=== PATIENT | male | born 1950 | race Hispanic/Latino ===

== ENCOUNTER 2017-08-24 22:52 | Observation (INO) | payer OTHER, MEDICARE ==
[~2017-08-24] VITALS: Ht 175.3 cm; Wt 88.9 kg
[~2017-08-24 22:52] MED LIST: CANA300T PO; CILO50TA PO; CLOP75TA14 PO; GABA-318 PO; INS7030 SQ; LEVO112T4 PO; METO-408 PO; NITR0.4T50 SL; SITA1TAB6 PO; [UNRECOGNIZED DRUG - OTHER] TD
[2017-08-24 23:17] LABS: BASOPHILS % (AUTO) 0.9 % (0.0-5.0); EOSINOPHILS % (AUTO) 1.9 % (0.0-8.0); HEMATOCRIT 42.3 % (42-54); LYMPHOCYTES % (AUTO) 43.8 % (21.0-51.0); MEAN CORPUSCULAR HEMOGLOBIN 32.1 pg (27.0-33.0); MEAN CORPUSCULAR VOLUME 91.9 fL (79-99); MONOCYTES % (AUTO) 6.2 % (3.0-13.0); NEUTROPHILS % (AUTO) 47.2 % (40.0-77.0); PLATELET COUNT (AUTO) 156 K/uL (130-400); RED BLOOD CELL COUNT(AUTO) 4.61 MIL/uL (4.50-6.20); RED CELL DISTRIBUTION WIDTH 12.7 % (11.0-15.5); WHITE BLOOD COUNT (AUTO) 6.3 K/uL (4.8-10.8)
[2017-08-24 23:31] LABS: CREATININE 1.4 mg/dL (0.5-1.5)
[2017-08-25] MEDS ORDERED: INSULIN HUMULIN R 100 UNIT/ML 3ML ONE ×2 (00:44→13:31)
[2017-08-25] MEDS ORDERED: SODIUM CHLORIDE 0.9% 1000ML 1,000 ML IV ONE (00:52)
[2017-08-25] MEDS ORDERED: ASPIRIN 81MG TAB.CHEW ONE (01:33)
[2017-08-25] MEDS ORDERED: INSULIN DETEMIR 10ML 100 UNIT/ML 10ML SQ ONE (08:11)
[2017-08-25 13:51] LABS: BASOPHILS % (AUTO) 0.7 % (0.0-5.0); EOSINOPHILS % (AUTO) 2.4 % (0.0-8.0); HEMATOCRIT 40.7 % (42-54); LYMPHOCYTES % (AUTO) 44.5 % (21.0-51.0); MEAN CORPUSCULAR HEMOGLOBIN 31.7 pg (27.0-33.0); MEAN CORPUSCULAR VOLUME 90.7 fL (79-99); MONOCYTES % (AUTO) 6.1 % (3.0-13.0); NEUTROPHILS % (AUTO) 46.3 % (40.0-77.0); PLATELET COUNT (AUTO) 148 K/uL (130-400); RED BLOOD CELL COUNT(AUTO) 4.48 MIL/uL (4.50-6.20); WHITE BLOOD COUNT (AUTO) 5.6 K/uL (4.8-10.8)
[2017-08-25 13:57] LABS: POTASSIUM 3.8 mmol/L (3.5-5.1)
[2017-08-25 16:25] VITALS: BP 139/71
[2017-08-25] MEDS ORDERED: GLUCAGON 1MG KIT 1 MG ML IM PRN (16:45)
[2017-08-25] MEDS ORDERED: DEXTROSE 50%-WATER 50 ML DISP.SYRIN IV PRN (16:45)
[2017-08-25] MEDS ORDERED: METF10004 PO (18:04)
[2017-08-25] MEDS ORDERED: CLOP75TA14 PO (18:04)
[2017-08-25] MEDS ORDERED: PIOG45TA17 PO (18:04)
[2017-08-25] MEDS ORDERED: AMLO5TAB2 PO (18:04)
[2017-08-25] MEDS ORDERED: LIOT5TAB8 PO (18:04)
[2017-08-25] MEDS ORDERED: METO-391 PO (18:04)
[2017-08-25] MEDS ORDERED: TAMS0.4C32 PO (18:04)
[2017-08-25 20:00] VITALS: BP 130/51
[2017-08-25] MEDS: INSULIN R PO SS1 SQ SCH (21:33)
[2017-08-25 23:41] VITALS: BP 120/67
[2017-08-26 03:55] VITALS: BP 114/65
[2017-08-26 04:47] LABS: CREATININE 1.1 mg/dL (0.5-1.5); HEMATOCRIT 42.5 % (42-54); MEAN CORPUSCULAR HEMOGLOBIN 31.8 pg (27.0-33.0); MEAN CORPUSCULAR HGB CONC 34.3 g/dL (32.0-36.0); MEAN CORPUSCULAR VOLUME 92.8 fL (79-99); NUCLEATED RED BLOOD CELLS 0.1 % (0.0-0.19); PLATELET COUNT (AUTO) 179 K/uL (130-400); POTASSIUM 3.8 mmol/L (3.5-5.1); RED BLOOD CELL COUNT(AUTO) 4.58 MIL/uL (4.50-6.20); RED CELL DISTRIBUTION WIDTH 12.8 % (11.0-15.5); WHITE BLOOD COUNT (AUTO) 6.4 K/uL (4.8-10.8)
[2017-08-26 05:36] LABS: EOSINOPHILS % (MANUAL) 1 % (1-6); LYMPHOCYTES % (MANUAL) 40 % (22-44); MAN.DIFF COMMENT-IMPRESSION MANUAL DIFFERENTIAL; MONOCYTES % (MANUAL) 1 % (2-9); PLATELET MORPHOLOGY COMMENT ADEQUATE; SEGMENTED NEUTROPHILS % 58 % (40-70)
[2017-08-26] MEDS: INSULIN R PO SS1 SQ SCH ×3 (06:31→17:58)
[2017-08-26] MEDS ORDERED: ASPI-555 PO (07:41)
[2017-08-26 08:00] VITALS: BP 104/60
[2017-08-26] MEDS ORDERED: CLOPIDOGREL BISULFATE 75 MG TAB PO SCH (09:00)
[2017-08-26] MEDS ORDERED: AMLODIPINE BESYLATE 5 MG TAB PO SCH (09:00)
[2017-08-26] MEDS ORDERED: TAMSULOSIN HCL 0.4 MG CAP.ER.24H PO SCH (09:00)
[2017-08-26] MEDS ORDERED: PIOGLITAZONE HCL 45 MG TAB PO SCH (09:00)
[2017-08-26] MEDS ORDERED: ASPIRIN 81MG TAB.CHEW PO SCH (09:00)
[2017-08-26] MEDS ORDERED: METOPROLOL TARTRATE 25 MG TAB PO SCH (09:00)
[2017-08-26] MEDS: METFORMIN HCL 500 MG TABLET PO SCH ×2 (09:44→18:00)
[2017-08-26 12:00] VITALS: BP 121/68
[2017-08-26] MEDS ORDERED: PREGABALIN 75 MG CAPSULE PO SCH (14:00)
[2017-08-26 16:00] VITALS: BP 106/61
[2017-08-27] MEDS ORDERED: Liothyronine Sodium 5 MCG PO SCH (09:00)
== END 2017-08-26 18:47 | disposition home or self-care (01) ==
LOC: EDH 22:52 → EDHIP 08-25 12:30 → 3CH 08-25 16:32
PROVIDERS: ADMIT Internal Medicine; ATTEND Internal Medicine
DX: I63.9 Cerebral infarction, unspecified (principal); I25.10 Atherosclerotic heart disease of native coronary artery without angina pectoris; E11.9 Type 2 diabetes mellitus without complications; E78.5 Hyperlipidemia, unspecified; I10 Essential (primary) hypertension; E03.9 Hypothyroidism, unspecified; F03.90 Unspecified dementia, unspecified severity, without behavioral disturbance, psychotic disturbance, mood disturbance, and anxiety; Z86.73 Personal history of transient ischemic attack (TIA), and cerebral infarction without residual deficits; Z88.0 Allergy status to penicillin; Z88.1 Allergy status to other antibiotic agents
CPT/HCPCS: 36415 ×3; 70544; 70551; 80048 ×3; 82948 ×6; 84484; 85025 ×3; 92610; 93005; 93306; 93880; 96372 ×2; 97161; 99291; G0378 ×30; G8978; G8979; G8980; G8981; G8982; G8983; J1815 ×7; J7030

== ENCOUNTER → 2017-11-17 | Outpatient (CLI) | payer OTHER, MEDICARE ==
[~2017-11-17] MED LIST changes: +AMLO5TAB2 PO; +ASPI-555 PO; +LIOT5TAB8 PO; +METF10004 PO; +METO-391 PO; +PIOG45TA64 PO; +TAMS0.4C32 PO
== END | disposition home or self-care (01) ==
LOC: SHCH 13:08
PROVIDERS: ATTEND Internal Medicine Cardiovascular Disease
DX: I34.0 Nonrheumatic mitral (valve) insufficiency (principal)
CPT/HCPCS: 93306

== ENCOUNTER 2018-08-14 18:51 | Emergency (ER) | payer OTHER, MEDICARE ==
[~2018-08-14 18:51] MED LIST changes: -AMLO5TAB2 PO; +AMLO5TAB7 PO; -ASPI-555 PO; +AUD IH; -CILO50TA PO; -CLOP75TA14 PO; +CLOP75TA32 PO; +DAPA10TA PO; +DULA1.5P SQ; +ERGO500014 PO; +ESOM40CA54 PO; +ICOS1CAP PO; -LEVO112T4 PO; +LEVO150T11 PO; +METF-446 PO; -METF10004 PO; -METO-391 PO; -METO-408 PO; +METO25TA6 PO; -NITR0.4T50 SL; +PREG150C PO; +ROSU40TA20 PO; -SITA1TAB6 PO; -[UNRECOGNIZED DRUG - OTHER] TD
[2018-08-14] MEDS ORDERED: HYDROCODONE/ACETAMINOPHEN 5/325 MG TAB ONE (20:50)
== END 2018-08-14 22:29 | disposition home or self-care (01) ==
LOC: EDH 18:51
DX: S00.03XA Contusion of scalp, initial encounter (principal); M54.2 Cervicalgia; M25.512 Pain in left shoulder; R53.1 Weakness; I10 Essential (primary) hypertension; I25.810 Atherosclerosis of coronary artery bypass graft(s) without angina pectoris; E11.9 Type 2 diabetes mellitus without complications; E78.5 Hyperlipidemia, unspecified; E07.9 Disorder of thyroid, unspecified; Z88.0 Allergy status to penicillin; Z88.1 Allergy status to other antibiotic agents; W18.39XA Other fall on same level, initial encounter; Y93.01 Activity, walking, marching and hiking; Y92.89 Other specified places as the place of occurrence of the external cause; Y99.8 Other external cause status
CPT/HCPCS: 70450; 72125; 93005

== ENCOUNTER 2018-11-25 14:36 | Emergency (ER) | payer OTHER, MEDICARE ==
[~2018-11-25 14:36] MED LIST changes: -AMLO5TAB7 PO; +AMLO5TAB9 PO; -GABA-318 PO; +GABA600T10 PO; -LIOT5TAB8 PO; +LIOT5TAB9 PO; -ROSU40TA20 PO; +ROSU40TA21 PO
[2018-11-25 14:54] LABS: APPEARANCE,URINE Clear (CLEAR); BILIRUBIN,URINE Negative (NEGATIVE); COLOR,URINE Yellow (YELLOW); GLUCOSE, URINE (UA) >=1000 mg/dL (NEGATIVE); KETONES,URINE Negative (NEGATIVE); LEUKOCYTE ESTERASE ,URINE Negative (NEGATIVE); NITRATE,URINE Negative (NEGATIVE); OCCULT BLOOD,URINE Negative (NEGATIVE); PH,URINE 6.5 (5.0-8.0); PROTEIN,URINE Negative (NEGATIVE)
[2018-11-25 15:02] LABS: BASOPHILS % (AUTO) 0.9 % (0.0-5.0); EOSINOPHILS % (AUTO) 0.4 % (0.0-8.0); HEMATOCRIT 48.9 % (42-54); LYMPHOCYTES % (AUTO) 12.2 % (21.0-51.0); MEAN CORPUSCULAR HEMOGLOBIN 31.8 pg (27.0-33.0); MEAN CORPUSCULAR HGB CONC 34.6 g/dL (32.0-36.0); NEUTROPHILS % (AUTO) 82.5 % (40.0-77.0); NUCLEATED RED BLOOD CELLS 0.1 % (0.0-0.19); PLATELET COUNT (AUTO) 178 K/uL (130-400); RED BLOOD CELL COUNT(AUTO) 5.31 MIL/uL (4.50-6.20); RED CELL DISTRIBUTION WIDTH 13.2 % (11.0-15.5); WHITE BLOOD COUNT (AUTO) 8.1 K/uL (4.8-10.8)
[2018-11-25 15:18] LABS: CREATININE 1.3 mg/dL (0.5-1.5); POTASSIUM 3.9 mmol/L (3.5-5.1)
[2018-11-25 15:23] LABS: BILIRUBIN,TOTAL 0.5 mg/dL (0.2-1.0); TOTAL PROTEIN, SERUM 8.9 g/dL (6.0-8.3)
== END 2018-11-25 17:25 | disposition home or self-care (01) ==
LOC: EDH 14:36
DX: I95.1 Orthostatic hypotension (principal); R42 Dizziness and giddiness; E11.9 Type 2 diabetes mellitus without complications; E78.5 Hyperlipidemia, unspecified; I10 Essential (primary) hypertension; I25.810 Atherosclerosis of coronary artery bypass graft(s) without angina pectoris; E07.9 Disorder of thyroid, unspecified; Z95.1 Presence of aortocoronary bypass graft; Z88.0 Allergy status to penicillin; Z88.1 Allergy status to other antibiotic agents
CPT/HCPCS: 36415; 80053; 81003; 84484; 85025; 93005; 96360

== ENCOUNTER → 2019-01-14 | Outpatient (CLI) | payer OTHER, MEDICARE ==
[~2019-01-14] MED LIST changes: +LIOT5TAB8 PO; -LIOT5TAB9 PO; +ROSU40TA20 PO; -ROSU40TA21 PO
== END | disposition home or self-care (01) ==
LOC: SHCH 11:04
PROVIDERS: ATTEND Internal Medicine Cardiovascular Disease
DX: I65.23 Occlusion and stenosis of bilateral carotid arteries (principal)
CPT/HCPCS: 93880

== ENCOUNTER 2019-01-20 12:51 | Emergency (ER) | payer OTHER, MEDICARE ==
[2019-01-20] MEDS ORDERED: ONDANSETRON HCL 4 MG/2 ML VIAL ONE (13:31)
[2019-01-20 13:32] LABS: BASOPHILS % (AUTO) 0.4 % (0.0-5.0); EOSINOPHILS % (AUTO) 0.8 % (0.0-8.0); HEMATOCRIT 44.3 % (42-54); LYMPHOCYTES % (AUTO) 19.3 % (21.0-51.0); MEAN CORPUSCULAR HEMOGLOBIN 32.4 pg (27.0-33.0); MEAN CORPUSCULAR HGB CONC 35.1 g/dL (32.0-36.0); MEAN CORPUSCULAR VOLUME 92.4 fL (79-99); MONOCYTES % (AUTO) 4.2 % (3.0-13.0); NEUTROPHILS % (AUTO) 75.3 % (40.0-77.0); NUCLEATED RED BLOOD CELLS 0.1 % (0.0-0.19); PLATELET COUNT (AUTO) 141 K/uL (130-400); RED BLOOD CELL COUNT(AUTO) 4.79 MIL/uL (4.50-6.20); RED CELL DISTRIBUTION WIDTH 12.8 % (11.0-15.5); WHITE BLOOD COUNT (AUTO) 6.7 K/uL (4.8-10.8)
[2019-01-20] MEDS ORDERED: SODIUM CHLORIDE 0.9% 1000ML 1,000 ML IV ONE (13:32)
[2019-01-20] MEDS ORDERED: KETOROLAC TROMETHAMINE 15MG/ML ONE (13:32)
[2019-01-20 13:44] LABS: CREATININE 1.3 mg/dL (0.5-1.5); POTASSIUM 4.1 mmol/L (3.5-5.1)
[2019-01-20 13:45] LABS: INR 1.02 (0.85-1.15); PARTIAL THROMBOPLASTIN TIME 27.7 SEC (26.3-35.5); PROTHROMBIN TIME 10.7 SEC (9.6-11.6)
[2019-01-20 13:48] LABS: ALBUMIN 3.4 g/dL (3.5-5.0); BILIRUBIN,TOTAL 0.8 mg/dL (0.2-1.0); TOTAL PROTEIN, SERUM 8.4 g/dL (6.0-8.3)
[2019-01-20 14:29] LABS: APPEARANCE,URINE CLEAR (CLEAR); BILIRUBIN,URINE NEGATIVE (NEGATIVE); COLOR,URINE YELLOW (YELLOW); GLUCOSE, URINE (UA) >=1000 mg/dL (NEGATIVE); KETONES,URINE 5 mg/dL (NEGATIVE); LEUKOCYTE ESTERASE ,URINE NEGATIVE (NEGATIVE); NITRATE,URINE NEGATIVE (NEGATIVE); OCCULT BLOOD,URINE NEGATIVE (NEGATIVE); PROTEIN,URINE NEGATIVE (NEGATIVE)
[2019-01-20 15:01] LABS: BACTERIA,URINE Rare /HPF (None Seen); RBC,URINE None Seen /HPF (0-1); SQUAMOUS EPITHELIAL CELL,UR None Seen /HPF (0-2); WBC,URINE 0-1 /HPF (0-1)
[2019-01-20] MEDS ORDERED: OSELTAMIVIR PHOSPHATE 75 MG CAP ONE (15:22)
== END 2019-01-20 15:46 | disposition home or self-care (01) ==
LOC: EDH 12:51
DX: J10.1 Influenza due to other identified influenza virus with other respiratory manifestations (principal); E11.9 Type 2 diabetes mellitus without complications; I10 Essential (primary) hypertension; E07.9 Disorder of thyroid, unspecified; I25.10 Atherosclerotic heart disease of native coronary artery without angina pectoris; Z88.0 Allergy status to penicillin; Z88.1 Allergy status to other antibiotic agents; Z95.818 Presence of other cardiac implants and grafts
CPT/HCPCS: 36415; 71045; 80053; 81001; 83605; 85025; 85610; 85730; 87040 ×2; 87088; 87804 ×2; 93005; 96374; 96375; 99285; J1885; J2405; J7030

== ENCOUNTER 2019-08-24 17:49 | Observation (INO) | payer OTHER, MEDICARE ==
[~2019-08-24] VITALS: Ht 175.3 cm; Wt 88.9 kg
[~2019-08-24 17:49] MED LIST changes: +LIOT5TAB11 PO; -LIOT5TAB8 PO; -ROSU40TA20 PO; +ROSU40TA21 PO
[2019-08-24 19:53] LABS: BASOPHILS % (AUTO) 0.4 % (0.0-5.0); EOSINOPHILS % (AUTO) 0.9 % (0.0-8.0); HEMATOCRIT 42.5 % (42-54); LYMPHOCYTES % (AUTO) 23.7 % (21.0-51.0); MEAN CORPUSCULAR HEMOGLOBIN 30.6 pg (27.0-33.0); MEAN CORPUSCULAR HGB CONC 34.1 g/dL (32.0-36.0); MEAN CORPUSCULAR VOLUME 89.7 fL (79-99); MONOCYTES % (AUTO) 7.7 % (3.0-13.0); PLATELET COUNT (AUTO) 154 K/uL (130-400); RED BLOOD CELL COUNT(AUTO) 4.74 MIL/uL (4.50-6.20); RED CELL DISTRIBUTION WIDTH 12.7 % (11.0-15.5); WHITE BLOOD COUNT (AUTO) 7.5 K/uL (4.8-10.8)
[2019-08-24 20:05] LABS: CREATININE 1.1 mg/dL (0.5-1.5); POTASSIUM 3.7 mmol/L (3.5-5.1)
[2019-08-24] MEDS ORDERED: IOHEXOL-350 75 ML VIAL IV ONE (20:08)
[2019-08-24 20:10] LABS: ALBUMIN 3.1 g/dL (3.5-5.0); BILIRUBIN,TOTAL 0.5 mg/dL (0.2-1.0); TOTAL PROTEIN, SERUM 8.1 g/dL (6.0-8.3)
[2019-08-24] MEDS ORDERED: DiphenhydrAMINE HCL 50 MG/ML VIAL ONE (20:14)
[2019-08-24] MEDS ORDERED: METHYLPREDNISOLONE SOD SUCC 125MG/2ML VIAL ONE (20:15)
[2019-08-24] MEDS ORDERED: VANCOMYCIN 1GM+NS 250ML 250 ML IV ONE (21:52)
[2019-08-24] MEDS ORDERED: SODIUM CHLORIDE 0.9% 1000ML 1,000 ML IV ONE (23:18)
[2019-08-25] VITALS (7 sets, daily range): BP systolic 97–136; BP diastolic 53–73
[2019-08-25] MEDS: SODIUM CHLORIDE 0.9% 1000ML 1,000 ML IV SCH ×2 (03:45→17:15)
[2019-08-25] MEDS ORDERED: ONDANSETRON HCL 4 MG/2 ML VIAL IVP PRN (03:45)
[2019-08-25] MEDS ORDERED: MORPHINE SULFATE 2 MG/ML 1ML SYG IVP PRN (03:45)
[2019-08-25] MEDS ORDERED: ZOSYN 3.375GM+NS 50ML 50 ML IV SCH (05:00)
[2019-08-25] MEDS ORDERED: COMPOUND IV REFRIGERATED 1 EACH IVSOLN MISC PRN (06:45)
[2019-08-25] MEDS ORDERED: VANCOMYCIN PROTOCOL PER PHARMACY IV SCH (09:00)
[2019-08-25] MEDS ORDERED: BENZ-51 PO (10:08)
[2019-08-25] MEDS ORDERED: SITA100T12 PO (10:08)
[2019-08-25] MEDS ORDERED: INSU100V37 SQ (10:08)
[2019-08-25] MEDS ORDERED: HYDR-4068 PO (10:08)
[2019-08-25] MEDS ORDERED: LOSA100T58 PO (10:08)
[2019-08-25] MEDS ORDERED: APIX5TAB PO (10:08)
[2019-08-25] MEDS ORDERED: FENO160T16 PO (10:08)
[2019-08-25] MEDS ORDERED: HYDROCODONE/ACETAMINOPHEN 10/325 MG TAB ONE (10:46)
[2019-08-25] MEDS: VANCOMYCIN 1.25 GM in SODIUM CHLORIDE 0.9% 250 ML IV SCH ×2 (10:49→20:18)
[2019-08-25] MEDS ORDERED: BENZONATATE 100 MG CAPSULE PO PRN (12:30)
[2019-08-25] MEDS: PREGABALIN 75 MG CAPSULE PO SCH ×2 (15:10→20:21)
--- NOTE | 2019-08-25 16:51 | NUR ---
DC PLAN PATIENT REFUSED INITIAL ASSESSMENT. Addendum: 08/25/19 at 1652 by CLARK GREENFIELD RN CM Amended: Links added.
[2019-08-25] MEDS: HYDROCODONE/ACETAMINOPHEN 10/325 MG TAB PO PRN (18:30)
[2019-08-25] MEDS: APIXABAN 5 MG TABLET PO SCH (20:20)
[2019-08-25] MEDS: METOPROLOL TARTRATE 25 MG TAB PO SCH (20:21)
[2019-08-25] MEDS ORDERED: ATORVASTATIN CALCIUM 40 MG TABLET PO SCH (21:00)
[2019-08-26 03:10] VITALS: BP 95/55
[2019-08-26 04:43] LABS: BASOPHILS % (AUTO) 0.2 % (0.0-5.0); EOSINOPHILS % (AUTO) 1.1 % (0.0-8.0); HEMATOCRIT 40.7 % (42-54); MEAN CORPUSCULAR HGB CONC 33.2 g/dL (32.0-36.0); MEAN CORPUSCULAR VOLUME 90.4 fL (79-99); MONOCYTES % (AUTO) 7.6 % (3.0-13.0); NEUTROPHILS % (AUTO) 69.6 % (40.0-77.0); PLATELET COUNT (AUTO) 162 K/uL (130-400); RED CELL DISTRIBUTION WIDTH 12.8 % (11.0-15.5); WHITE BLOOD COUNT (AUTO) 8.8 K/uL (4.8-10.8)
[2019-08-26 04:53] LABS: POTASSIUM 3.6 mmol/L (3.5-5.1)
[2019-08-26] MEDS: SODIUM CHLORIDE 0.9% 1000ML 1,000 ML IV SCH (05:15)
[2019-08-26] MEDS: HYDROCODONE/ACETAMINOPHEN 10/325 MG TAB PO PRN ×2 (05:15→12:19)
[2019-08-26 07:21] VITALS: BP 121/50
[2019-08-26] MEDS ORDERED: LEVOTHYROXINE 100 MCG TABLET PO SCH (08:00)
[2019-08-26] MEDS ORDERED: LOSARTAN 100 MG TABLET PO SCH (09:00)
[2019-08-26] MEDS ORDERED: PANTOPRAZOLE SODIUM 40 MG TABLET.DR PO SCH (09:00)
[2019-08-26] MEDS ORDERED: TAMSULOSIN HCL 0.4 MG CAP.ER.24H PO SCH (09:00)
[2019-08-26] MEDS: PREGABALIN 75 MG CAPSULE PO SCH ×2 (09:47→14:53)
[2019-08-26] MEDS: VANCOMYCIN 1.25 GM in SODIUM CHLORIDE 0.9% 250 ML IV SCH (09:49)
[2019-08-26] MEDS: METOPROLOL TARTRATE 25 MG TAB PO SCH (09:49)
[2019-08-26] MEDS: APIXABAN 5 MG TABLET PO SCH (10:49)
[2019-08-26 11:00] VITALS: BP 125/68
[2019-08-26 16:00] VITALS: BP 100/50
--- NOTE | 2019-08-26 18:00 | NUR ---
DISCHARGE INSTRUCTION PROVIDED TO PATIENT ,INSTRUCTED PATIEN TO FOLLOW UP WITH DOCTOR AND A COLORECTAL SURGEON RECOOMENDED BY DR BRISCOE . PER PATIENT VERBILIZED UNDERSTADING. ABSCESS AREA CHECKED NO SIGNS OF BLEED OR DRAINAGE
== END 2019-08-26 19:00 | disposition home or self-care (01) ==
LOC: EDH 17:49 → EDHIP 21:56 → INTOOBSV 21:56 → OBSVTOIN 21:56 → 4DH 23:27
PROVIDERS: ADMIT Internal Medicine Critical Care Medicine; ATTEND Internal Medicine Critical Care Medicine
DX: L02.31 Cutaneous abscess of buttock (principal); E11.65 Type 2 diabetes mellitus with hyperglycemia; E78.5 Hyperlipidemia, unspecified; E03.9 Hypothyroidism, unspecified; I10 Essential (primary) hypertension; I25.10 Atherosclerotic heart disease of native coronary artery without angina pectoris; F03.90 Unspecified dementia, unspecified severity, without behavioral disturbance, psychotic disturbance, mood disturbance, and anxiety; Z86.73 Personal history of transient ischemic attack (TIA), and cerebral infarction without residual deficits; Z79.01 Long term (current) use of anticoagulants; Z79.02 Long term (current) use of antithrombotics/antiplatelets; Z79.4 Long term (current) use of insulin; Z79.899 Other long term (current) drug therapy
CPT/HCPCS: 36415 ×2; 71045; 72193; 80048; 80053; 80202; 82948 ×2; 83605; 84484; 85025 ×2; 87040 ×2; 93005; 96361 ×2; 96365; 96366 ×2; 99284; G0378 ×45; J1200; J2930; J3370 ×3; J7030 ×3; Q9967

== ENCOUNTER 2020-11-15 19:36 | Emergency (ER) | payer OTHER, MEDICARE ==
[~2020-11-15 19:36] MED LIST changes: -AMLO5TAB9 PO; +APIX5TAB PO; -AUD IH; +BENZ-51 PO; -CANA300T PO; -CLOP75TA32 PO; -ERGO500014 PO; +FENO160T16 PO; -GABA600T10 PO; +HYDR-4068 PO; -INS7030 SQ; +INSU100V37 SQ; -LIOT5TAB11 PO; +LOSA100T58 PO; +SITA100T12 PO
[2020-11-15] MEDS ORDERED: CLINDAMYCIN 600 MG/D5% WATER 50 ML IV ONE (20:07)
[2020-11-15] MEDS ORDERED: HYDROCODONE/ACETAMINOPHEN 10/325 MG TAB ONE (20:08)
[2020-11-15 20:51] LABS: BASOPHILS % (AUTO) 0.9 % (0.0-5.0); EOSINOPHILS % (AUTO) 1.7 % (0.0-8.0); HEMATOCRIT 41.6 % (42-54); LYMPHOCYTES % (AUTO) 37.2 % (21.0-51.0); MEAN CORPUSCULAR HEMOGLOBIN 31.3 pg (27.0-33.0); MEAN CORPUSCULAR HGB CONC 34.6 g/dL (32.0-36.0); MEAN CORPUSCULAR VOLUME 90.4 fL (79-99); MONOCYTES % (AUTO) 7.6 % (3.0-13.0); NEUTROPHILS % (AUTO) 52.3 % (40.0-77.0); PLATELET COUNT (AUTO) 175 K/uL (130-400); RED CELL DISTRIBUTION WIDTH 13.8 % (11.0-15.5); WHITE BLOOD COUNT (AUTO) 8.7 K/uL (4.8-10.8)
[2020-11-15 21:00] LABS: APPEARANCE,URINE Clear (CLEAR); BILIRUBIN,URINE Negative (NEGATIVE); COLOR,URINE Yellow (YELLOW); GLUCOSE, URINE (UA) >=1000 mg/dL (NEGATIVE); KETONES,URINE Negative (NEGATIVE); LEUKOCYTE ESTERASE ,URINE Negative (NEGATIVE); NITRATE,URINE Negative (NEGATIVE); OCCULT BLOOD,URINE Negative (NEGATIVE); PROTEIN,URINE Negative (NEGATIVE); UROBILINOGEN,URINE 0.2 mg/dL (0.2-1.0)
[2020-11-15 21:03] LABS: INR 0.98 (0.85-1.15); PROTHROMBIN TIME 10.7 SEC (9.6-11.6)
[2020-11-15 21:04] LABS: CREATININE 1.3 mg/dL (0.5-1.5); POTASSIUM 4.1 mmol/L (3.5-5.1)
[2020-11-15 21:05] LABS: PARTIAL THROMBOPLASTIN TIME 24.9 SEC (26.3-35.5)
[2020-11-15 21:08] LABS: ALBUMIN 3.6 g/dL (3.5-5.0); BILIRUBIN,TOTAL 0.4 mg/dL (0.2-1.0); TOTAL PROTEIN, SERUM 9.1 g/dL (6.0-8.3)
[2020-11-15 21:10] LABS: B-TYPE NATRIURETIC PEPTIDE 22 pg/mL (0-100)
[2020-11-15 21:23] LABS: BACTERIA,URINE None Seen /HPF (None Seen); RBC,URINE 0-1 /HPF (0-1); SQUAMOUS EPITHELIAL CELL,UR 0-2 /HPF (0-2); WBC,URINE 0-1 /HPF (0-1); YEAST,URINE BUDDING Rare /HPF (None Seen)
== END 2020-11-15 21:41 | disposition home or self-care (01) ==
LOC: EDH 19:36
DX: L03.115 Cellulitis of right lower limb (principal); M79.2 Neuralgia and neuritis, unspecified; Z20.822 Contact with and (suspected) exposure to COVID-19; I10 Essential (primary) hypertension; E11.9 Type 2 diabetes mellitus without complications; E78.5 Hyperlipidemia, unspecified; I25.10 Atherosclerotic heart disease of native coronary artery without angina pectoris; F03.90 Unspecified dementia, unspecified severity, without behavioral disturbance, psychotic disturbance, mood disturbance, and anxiety; Z88.0 Allergy status to penicillin; Z88.1 Allergy status to other antibiotic agents; Z95.1 Presence of aortocoronary bypass graft
CPT/HCPCS: 36415; 71045; 73630; 80053; 81001; 83605; 83880; 84484; 85025; 85610; 85730; 87040 ×2; 87426; 93005; 93971; 96365; 99285; J3490; U0003

== ENCOUNTER → 2021-02-13 | Outpatient (CLI) | payer OTHER, MEDICARE ==
[~2021-02-13] MED LIST changes: -BENZ-51 PO; +BENZ-70 PO; +IOHEXOL 350 MG/ML 100ML INFUS..BTL IV ONE; +IOHEXOL-350 50ML VIAL IV ONE
== END | disposition home or self-care (01) ==
LOC: RAH 07:25
PROVIDERS: ATTEND Internal Medicine Cardiovascular Disease
DX: K57.30 Diverticulosis of large intestine without perforation or abscess without bleeding (principal); I70.293 Other atherosclerosis of native arteries of extremities, bilateral legs; I70.0 Atherosclerosis of aorta
CPT/HCPCS: 75635; Q9967 ×2

== ENCOUNTER → 2021-04-12 | Outpatient (CLI) | payer OTHER, MEDICARE ==
[~2021-04-12] MED LIST changes: -IOHEXOL 350 MG/ML 100ML INFUS..BTL IV ONE; -IOHEXOL-350 50ML VIAL IV ONE
== END | disposition home or self-care (01) ==
LOC: RAH 12:28
PROVIDERS: ATTEND Internal Medicine Cardiovascular Disease
DX: I74.3 Embolism and thrombosis of arteries of the lower extremities (principal); M79.604 Pain in right leg
CPT/HCPCS: 93925; 93970

== ENCOUNTER 2021-10-01 09:23 | Emergency (ER) | payer OTHER, MEDICARE ==
[~2021-10-01] VITALS: Ht 175.3 cm; Wt 83.9 kg
[2021-10-01] MEDS ORDERED: ACETAMINOPHEN 500 MG TABLET PO SCH (10:00)
[2021-10-01 11:06] LABS: BASOPHILS % (AUTO) 0.7 % (0.0-5.0); EOSINOPHILS % (AUTO) 2.1 % (0.0-8.0); HEMATOCRIT 42.1 % (42-54); LYMPHOCYTES % (AUTO) 26.8 % (21.0-51.0); MEAN CORPUSCULAR HEMOGLOBIN 30.3 pg (27.0-33.0); MEAN CORPUSCULAR HGB CONC 33.5 g/dL (32.0-36.0); MEAN CORPUSCULAR VOLUME 90.5 fL (79-99); MONOCYTES % (AUTO) 8.4 % (3.0-13.0); NEUTROPHILS % (AUTO) 61.6 % (40.0-77.0); PLATELET COUNT (AUTO) 168 K/uL (130-400); RED BLOOD CELL COUNT(AUTO) 4.65 MIL/uL (4.50-6.20); RED CELL DISTRIBUTION WIDTH 12.4 % (11.0-15.5); WHITE BLOOD COUNT (AUTO) 8.6 K/uL (4.8-10.8)
[2021-10-01 11:13] LABS: POTASSIUM 4.2 mmol/L (3.5-5.1)
[2021-10-01 11:15] LABS: INR 1.05 (0.85-1.15); PROTHROMBIN TIME 11.4 SEC (9.6-11.6)
[2021-10-01 11:18] LABS: BILIRUBIN,TOTAL 0.6 mg/dL (0.2-1.0); TOTAL PROTEIN, SERUM 8.4 g/dL (6.0-8.3)
[2021-10-01 11:50] VITALS: BP 137/69
[2021-10-01] MEDS ORDERED: ACET1TAB25 PO (12:15)
== END 2021-10-01 12:21 | disposition home or self-care (01) ==
LOC: EDH 09:23
DX: I73.9 Peripheral vascular disease, unspecified (principal); M79.604 Pain in right leg; I11.0 Hypertensive heart disease with heart failure; E11.9 Type 2 diabetes mellitus without complications; I25.10 Atherosclerotic heart disease of native coronary artery without angina pectoris; E78.00 Pure hypercholesterolemia, unspecified; Z95.0 Presence of cardiac pacemaker; Z88.0 Allergy status to penicillin; Z88.1 Allergy status to other antibiotic agents; Z79.4 Long term (current) use of insulin; Z79.899 Other long term (current) drug therapy
CPT/HCPCS: 36415; 80053; 82550; 85025; 85610; 93926

== ENCOUNTER → 2022-05-10 | Outpatient (CLI) | payer OTHER, MEDICARE ==
[~2022-05-10] MED LIST changes: +ACET-2079 PO
== END | disposition home or self-care (01) ==
LOC: OIH 10:34
PROVIDERS: ATTEND Internal Medicine Cardiovascular Disease
DX: I35.8 Other nonrheumatic aortic valve disorders (principal); I10 Essential (primary) hypertension; I25.119 Atherosclerotic heart disease of native coronary artery with unspecified angina pectoris; Z95.5 Presence of coronary angioplasty implant and graft
CPT/HCPCS: 93306

== ENCOUNTER 2022-08-13 16:51 | Emergency (ER) | payer MEDICARE, OTHER ==
[~2022-08-13] VITALS: Ht 175.3 cm; Wt 81.6 kg
[2022-08-13 18:40] LABS: BASOPHILS % (AUTO) 0.6 % (0.0-5.0); EOSINOPHILS % (AUTO) 1.2 % (0.0-8.0); HEMATOCRIT 37.4 % (42-54); LYMPHOCYTES % (AUTO) 30.9 % (21.0-51.0); MEAN CORPUSCULAR HEMOGLOBIN 30.4 pg (27.0-33.0); MEAN CORPUSCULAR HGB CONC 34.5 g/dL (32.0-36.0); MONOCYTES % (AUTO) 6.8 % (3.0-13.0); NEUTROPHILS % (AUTO) 60.1 % (40.0-77.0); PLATELET COUNT (AUTO) 194 K/uL (130-400); RED BLOOD CELL COUNT(AUTO) 4.25 MIL/uL (4.50-6.20); RED CELL DISTRIBUTION WIDTH 12.5 % (11.0-15.5); WHITE BLOOD COUNT (AUTO) 8.1 K/uL (4.8-10.8)
[2022-08-13 18:57] LABS: CREATININE 1.1 mg/dL (0.5-1.5); POTASSIUM 4.5 mmol/L (3.5-5.1)
[2022-08-13 19:01] LABS: TOTAL PROTEIN, SERUM 8.5 g/dL (6.0-8.3)
[2022-08-13] MEDS ORDERED: CLIN-141 PO (19:01)
[2022-08-13 19:25] VITALS: BP 128/53
== END 2022-08-13 19:26 | disposition home or self-care (01) ==
LOC: EDH 16:51
DX: L03.115 Cellulitis of right lower limb (principal); I25.10 Atherosclerotic heart disease of native coronary artery without angina pectoris; E11.9 Type 2 diabetes mellitus without complications; I10 Essential (primary) hypertension; E78.00 Pure hypercholesterolemia, unspecified; Z79.899 Other long term (current) drug therapy; Z98.890 Other specified postprocedural states; Z88.1 Allergy status to other antibiotic agents; Z79.4 Long term (current) use of insulin; Z88.0 Allergy status to penicillin
CPT/HCPCS: 36415; 80053; 85025

== ENCOUNTER → 2022-12-09 | Outpatient (CLI) | payer OTHER ==
[~2022-12-09] MED LIST changes: -ACET-2079 PO; +ALBU90AE2 IH; +ATOR40TA69 PO; -BENZ-70 PO; +BISA-189 PO; -DAPA10TA PO; -ESOM40CA54 PO; -FENO160T16 PO; -HYDR-4068 PO; +NITR0.4T50 SL; +POTA-200 PO; -ROSU40TA21 PO; -SITA100T12 PO; -TAMS0.4C32 PO; +TIOT4MIS5 IH
[2022-12-09 16:22] LABS: BASOPHILS % (AUTO) 0.7 % (0.0-5.0); EOSINOPHILS % (AUTO) 2.4 % (0.0-8.0); HEMATOCRIT 30.1 % (42-54); LYMPHOCYTES % (AUTO) 37.9 % (21.0-51.0); MEAN CORPUSCULAR HEMOGLOBIN 27.5 pg (27.0-33.0); MEAN CORPUSCULAR HGB CONC 30.6 g/dL (32.0-36.0); MEAN CORPUSCULAR VOLUME 90.1 fL (79-99); MONOCYTES % (AUTO) 5.7 % (3.0-13.0); NEUTROPHILS % (AUTO) 52.9 % (40.0-77.0); PLATELET COUNT (AUTO) 248 K/uL (130-400); RED BLOOD CELL COUNT(AUTO) 3.34 MIL/uL (4.50-6.20); RED CELL DISTRIBUTION WIDTH 15.4 % (11.0-15.5); WHITE BLOOD COUNT (AUTO) 7.5 K/uL (4.8-10.8)
[2022-12-09 16:56] LABS: ALBUMIN 2.9 g/dL (3.5-5.0); CREATININE 1.1 mg/dL (0.5-1.5); POTASSIUM 4.2 mmol/L (3.5-5.1); T4 (THYROXINE) 11.4 ug/dL (4.7-13.3); THYROID STIMULATING HORMONE 0.03 uIU/mL (0.36-3.74); TOTAL PROTEIN, SERUM 8.9 g/dL (6.0-8.3)
== END | disposition home or self-care (01) ==
LOC: LAB 13:00
PROVIDERS: ATTEND Physician Assistant
DX: I10 Essential (primary) hypertension (principal); E78.5 Hyperlipidemia, unspecified
CPT/HCPCS: 36415; 80053; 84436; 84443; 84479; 85025

== ENCOUNTER 2023-03-05 17:45 | Inpatient (IN) | payer OTHER ==
[~2023-03-05] VITALS: Ht 175.3 cm; Wt 82.6 kg
[~2023-03-05 17:45] MED LIST changes: -LOSA100T58 PO; +LOSA100T59 PO
[2023-03-05 18:33] LABS: BASOPHILS # (AUTO) 0.06 K/uL (0.00-0.20); BASOPHILS % (AUTO) 0.6 % (0.0-5.0); EOSINOPHILS # (AUTO) 0.26 K/uL (0.00-0.70); EOSINOPHILS % (AUTO) 2.7 % (0.0-8.0); HEMATOCRIT 30.5 % (42-54); IMMATURE GRANULOCYTE ABSOLUTE 0.06 K/uL (0-1); LYMPHOCYTES # (AUTO) 2.3 K/uL (1.0-4.8); MEAN CORPUSCULAR HEMOGLOBIN 26.7 pg (27.0-33.0); MEAN CORPUSCULAR HGB CONC 31.5 g/dL (32.0-36.0); MONOCYTES # (AUTO) 0.8 K/uL (0.1-1.0); MONOCYTES % (AUTO) 8.4 % (3.0-13.0); NEUTROPHILS # (AUTO) 6.2 K/uL (1.8-7.7); NEUTROPHILS % (AUTO) 63.7 % (40.0-77.0); PLATELET COUNT (AUTO) 227 K/uL (130-400); RED BLOOD CELL COUNT(AUTO) 3.59 MIL/uL (4.50-6.20); RED CELL DISTRIBUTION WIDTH 15.7 % (11.0-15.5); WHITE BLOOD COUNT (AUTO) 9.8 K/uL (4.8-10.8)
[2023-03-05 18:43] LABS: CREATININE 1.5 mg/dL (0.5-1.5); POTASSIUM 4.2 mmol/L (3.5-5.1)
[2023-03-05 18:45] LABS: PROTHROMBIN TIME 11.6 SEC (9.6-11.6)
[2023-03-05 18:46] LABS: PARTIAL THROMBOPLASTIN TIME 33.6 SEC (26.3-35.5)
[2023-03-05 18:50] LABS: ALBUMIN 2.6 g/dL (3.5-5.0); BILIRUBIN,TOTAL 0.3 mg/dL (0.2-1.0); TOTAL PROTEIN, SERUM 8.9 g/dL (6.0-8.3)
[2023-03-05] MEDS ORDERED: ONDANSETRON 4MG INJ IVP PRN (19:00)
[2023-03-05] MEDS ORDERED: MORPHINE 2 MG SYG IVP PRN (19:00)
[2023-03-05] MEDS ORDERED: LEVOFLOXACIN 500 MG/D5W 100 ML 100 ML IV SCH ×2 (19:00→20:00)
[2023-03-05] MEDS ORDERED: VANCOMYCIN PROTOCOL PER PHARMACY IV SCH ×2 (19:00→20:00)
[2023-03-05] MEDS ORDERED: VANCOMYCIN KIT 1 GM/250 ML IV.KIT IV ONE (20:00)
[2023-03-05] MEDS ORDERED: LEVOFLOXACIN 500 MG/D5W 100 ML 100 ML IV ONE (21:00)
[2023-03-05] MEDS: VANCOMYCIN KIT 1 GM/250 ML IV.KIT IV SCH (21:17)
[2023-03-05 21:55] VITALS: BP 148/74; PULSE 66; RESP 18
[2023-03-06] VITALS (7 sets, daily range): BP systolic 120–159; BP diastolic 50–73; PULSE 60–68; RESP 16–18
[2023-03-06 05:43] LABS: HEMATOCRIT 29.2 % (42-54); MEAN CORPUSCULAR HEMOGLOBIN 26.9 pg (27.0-33.0); MEAN CORPUSCULAR HGB CONC 31.2 g/dL (32.0-36.0); MEAN CORPUSCULAR VOLUME 86.4 fL (79-99); RED BLOOD CELL COUNT(AUTO) 3.38 MIL/uL (4.50-6.20); RED CELL DISTRIBUTION WIDTH 15.7 % (11.0-15.5); WHITE BLOOD COUNT (AUTO) 7.8 K/uL (4.8-10.8)
[2023-03-06 06:10] LABS: ALBUMIN 2.4 g/dL (3.5-5.0); BILIRUBIN,TOTAL 0.3 mg/dL (0.2-1.0); CREATININE 1.3 mg/dL (0.5-1.5); POTASSIUM 3.6 mmol/L (3.5-5.1); TOTAL PROTEIN, SERUM 8.5 g/dL (6.0-8.3)
[2023-03-06] MEDS: HYDROMORPHONE 0.5 MG SYG (0.5MG/0.5ML) IVP PRN ×2 (08:35→20:06)
[2023-03-06] MEDS ORDERED: DEXTROSE 50%-WATER 50 ML DISP.SYRIN IV PRN (12:00)
[2023-03-06] MEDS ORDERED: MAGNESIUM 2GM PREMIX 50ML 50 ML IV PRN (12:00)
[2023-03-06] MEDS ORDERED: LOSARTAN 100 MG TABLET PO ONE (12:00)
[2023-03-06] MEDS ORDERED: POTASSIUM CHLORIDE 10% ELIXIR 20 MEQ/15 ML UDCUP PO PRN (12:00)
[2023-03-06] MEDS ORDERED: HEPARIN 5,000 UNIT VIAL SQ SCH (12:00)
[2023-03-06] MEDS ORDERED: GLUCAGON 1MG KIT 1 MG ML IM PRN (12:00)
[2023-03-06] MEDS ORDERED: POTASSIUM CHLORIDE 20MEQ/100ML 100 ML IV PRN (12:00)
[2023-03-06 12:12] LABS: CRP QUANTITATIVE 81.5 mg/L (0.00-9.0)
[2023-03-06 12:18] LABS: HEMOGLOBIN A1C 6.7 % (4.0-6.0)
[2023-03-06] MEDS: KETOROLAC 15MG/ML VIAL (15MG/ML) IV PRN (13:24)
[2023-03-06] MEDS ORDERED: IOHEXOL-350 75 ML VIAL IV ONE (14:45)
[2023-03-06] MEDS ORDERED: IOHEXOL-350 50ML VIAL IV ONE (14:45)
[2023-03-06] MEDS: INSULIN HUMULIN R 100 UNIT/ML 3ML SQ SCH ×2 (16:30→20:04)
[2023-03-06] MEDS ORDERED: PREG150C46 PO (18:32)
[2023-03-06] MEDS ORDERED: SEMA0.258 SQ (18:32)
[2023-03-06] MEDS ORDERED: ROSU40TA21 PO (18:32)
[2023-03-06] MEDS ORDERED: CLOP75TA32 PO (18:32)
[2023-03-06] MEDS ORDERED: PIOG45TA64 PO (18:32)
[2023-03-06] MEDS ORDERED: DAPA10TA PO (18:32)
[2023-03-06] MEDS ORDERED: METF-446 PO (18:32)
[2023-03-06] MEDS ORDERED: APIX5TAB PO (18:32)
[2023-03-06] MEDS ORDERED: HYDR-3422 PO (18:32)
[2023-03-06] MEDS ORDERED: DULO60CA64 PO (18:32)
[2023-03-06] MEDS ORDERED: CIPR250S6 PO (18:32)
[2023-03-06] MEDS ORDERED: LEVO150C4 PO (18:32)
[2023-03-06] MEDS ORDERED: LOSA100T59 PO (18:32)
[2023-03-06] MEDS ORDERED: HYDR-4068 PO (18:32)
[2023-03-06] MEDS ORDERED: INSU100I24 SQ (18:32)
[2023-03-06] MEDS: ENOXAPARIN SODIUM 80 MG/0.8 ML SQ SCH (18:54)
[2023-03-06] MEDS: VANCOMYCIN KIT 1 GM/250 ML IV.KIT IV SCH (19:00)
[2023-03-06] MEDS: ATORVASTATIN 40 MG TABLET PO SCH (20:06)
[2023-03-06] MEDS: LEVOFLOXACIN 250 MG/D5W 50ML 50 ML IVPB SCH (20:06)
[2023-03-06] MEDS: METOPROLOL SUCCINATE 50 MG TAB.SR.24H PO SCH (20:06)
[2023-03-06] MEDS ORDERED: VANCOMYCIN 1.25 GM/250 ML BAG 250 ML IV SCH (21:00)
[2023-03-07] VITALS (7 sets, daily range): BP systolic 109–160; BP diastolic 47–68; PULSE 66–72; RESP 16–18; O2SAT 97
[2023-03-07] MEDS: HYDROMORPHONE 0.5 MG SYG (0.5MG/0.5ML) IVP PRN ×2 (02:00→20:48)
[2023-03-07 05:05] LABS: BASOPHILS # (AUTO) 0.06 K/uL (0.00-0.20); BASOPHILS % (AUTO) 0.9 % (0.0-5.0); EOSINOPHILS # (AUTO) 0.26 K/uL (0.00-0.70); EOSINOPHILS % (AUTO) 3.8 % (0.0-8.0); HEMATOCRIT 28.9 % (42-54); IMMATURE GRANULOCYTE ABSOLUTE 0.02 K/uL (0-1); LYMPHOCYTES % (AUTO) 29.3 % (21.0-51.0); MEAN CORPUSCULAR HGB CONC 31.8 g/dL (32.0-36.0); MEAN CORPUSCULAR VOLUME 84.8 fL (79-99); MONOCYTES # (AUTO) 0.7 K/uL (0.1-1.0); MONOCYTES % (AUTO) 9.5 % (3.0-13.0); NEUTROPHILS # (AUTO) 3.9 K/uL (1.8-7.7); NEUTROPHILS % (AUTO) 56.2 % (40.0-77.0); PLATELET COUNT (AUTO) 216 K/uL (130-400); RED BLOOD CELL COUNT(AUTO) 3.41 MIL/uL (4.50-6.20); RED CELL DISTRIBUTION WIDTH 15.2 % (11.0-15.5); WHITE BLOOD COUNT (AUTO) 6.9 K/uL (4.8-10.8)
[2023-03-07 05:19] LABS: % IRON SATURATION 10.5 % (30-44)
[2023-03-07 05:39] LABS: ALBUMIN 2.4 g/dL (3.5-5.0); BILIRUBIN,TOTAL 0.3 mg/dL (0.2-1.0); CREATININE 1.3 mg/dL (0.5-1.5); POTASSIUM 3.7 mmol/L (3.5-5.1); TOTAL PROTEIN, SERUM 8.3 g/dL (6.0-8.3)
[2023-03-07 06:00] LABS: APPEARANCE,URINE CLEAR (CLEAR); BILIRUBIN,URINE NEGATIVE (NEGATIVE); COLOR,URINE LIGHT-YELLOW (YELLOW); GLUCOSE, URINE (UA) NEGATIVE (NEGATIVE); KETONES,URINE NEGATIVE (NEGATIVE); LEUKOCYTE ESTERASE ,URINE NEGATIVE Leu/uL (NEGATIVE); NITRATE,URINE NEGATIVE (NEGATIVE); PROTEIN,URINE 50 mg/dL (NEGATIVE); UROBILINOGEN,URINE 0.2 mg/dL (0.2-1.0)
[2023-03-07 06:02] LABS: ADD UA MICROSCOPIC YES
[2023-03-07 06:04] LABS: MUCUS,URINE RARE LPF (None Seen); SQUAMOUS EPITHELIAL CELL,UR RARE /HPF (0-2); WBC,URINE 0-1 /HPF (0-1)
[2023-03-07] MEDS: INSULIN HUMULIN R 100 UNIT/ML 3ML SQ SCH ×4 (06:15→20:41)
[2023-03-07] MEDS: LEVOTHYROXINE 100 MCG TABLET PO SCH (06:19)
[2023-03-07] MEDS: ENOXAPARIN SODIUM 80 MG/0.8 ML SQ SCH ×2 (06:19→17:13)
[2023-03-07] MEDS: METOPROLOL SUCCINATE 50 MG TAB.SR.24H PO SCH ×2 (09:08→20:40)
[2023-03-07] MEDS: CLOPIDOGREL 75MG TAB PO SCH (09:08)
[2023-03-07] MEDS: PANTOPRAZOLE 40 MG/VIAL IVP SCH (09:14)
[2023-03-07] MEDS: CEFEPIME HCL 1 GM VIAL IVPB SCH ×2 (15:19→20:41)
[2023-03-07] MEDS: VANCOMYCIN 1.25 GM/250 ML BAG 250 ML IV SCH (17:13)
[2023-03-07] MEDS: KETOROLAC 15MG/ML VIAL (15MG/ML) IV PRN (17:15)
[2023-03-07] MEDS: LEVOFLOXACIN 250 MG/D5W 50ML 50 ML IVPB SCH (20:37)
[2023-03-07] MEDS: ATORVASTATIN 40 MG TABLET PO SCH (20:40)
[2023-03-08] VITALS (7 sets, daily range): BP systolic 129–150; BP diastolic 58–69; PULSE 63–71; RESP 18–20; O2SAT 95–98
[2023-03-08] MEDS: ENOXAPARIN SODIUM 80 MG/0.8 ML SQ SCH ×2 (04:58→17:54)
[2023-03-08] MEDS: CEFEPIME HCL 1 GM VIAL IVPB SCH ×2 (04:59→14:22)
[2023-03-08] MEDS: LEVOTHYROXINE 100 MCG TABLET PO SCH (05:00)
[2023-03-08 05:12] LABS: BASOPHILS # (AUTO) 0.05 K/uL (0.00-0.20); BASOPHILS % (AUTO) 0.8 % (0.0-5.0); EOSINOPHILS # (AUTO) 0.16 K/uL (0.00-0.70); EOSINOPHILS % (AUTO) 2.6 % (0.0-8.0); HEMATOCRIT 28.4 % (42-54); IMMATURE GRANULOCYTE ABSOLUTE 0.01 K/uL (0-1); LYMPHOCYTES # (AUTO) 1.8 K/uL (1.0-4.8); LYMPHOCYTES % (AUTO) 29.2 % (21.0-51.0); MEAN CORPUSCULAR HEMOGLOBIN 26.4 pg (27.0-33.0); MEAN CORPUSCULAR HGB CONC 31.7 g/dL (32.0-36.0); MEAN CORPUSCULAR VOLUME 83.3 fL (79-99); MONOCYTES # (AUTO) 0.6 K/uL (0.1-1.0); MONOCYTES % (AUTO) 10.2 % (3.0-13.0); NEUTROPHILS # (AUTO) 3.5 K/uL (1.8-7.7); PLATELET COUNT (AUTO) 225 K/uL (130-400); RED BLOOD CELL COUNT(AUTO) 3.41 MIL/uL (4.50-6.20); RED CELL DISTRIBUTION WIDTH 15.1 % (11.0-15.5); WHITE BLOOD COUNT (AUTO) 6.1 K/uL (4.8-10.8)
[2023-03-08] MEDS: INSULIN HUMULIN R 100 UNIT/ML 3ML SQ SCH ×4 (05:28→20:56)
[2023-03-08 05:32] LABS: ALBUMIN 2.3 g/dL (3.5-5.0); BILIRUBIN,TOTAL 0.3 mg/dL (0.2-1.0); CREATININE 1.3 mg/dL (0.5-1.5); POTASSIUM 3.4 mmol/L (3.5-5.1); TOTAL PROTEIN, SERUM 8.3 g/dL (6.0-8.3)
[2023-03-08] MEDS: KCL 20 MEQ ERTAB PO PRN ×2 (05:56→08:33)
[2023-03-08] MEDS: METOPROLOL SUCCINATE 50 MG TAB.SR.24H PO SCH ×2 (08:33→21:12)
[2023-03-08] MEDS: CLOPIDOGREL 75MG TAB PO SCH (08:33)
[2023-03-08] MEDS: PANTOPRAZOLE 40 MG/VIAL IVP SCH (08:33)
[2023-03-08] MEDS: KETOROLAC 15MG/ML VIAL (15MG/ML) IV PRN (11:22)
[2023-03-08] MEDS: HYDROMORPHONE 0.5 MG SYG (0.5MG/0.5ML) IVP PRN ×2 (12:43→22:18)
[2023-03-08] MEDS: VANCOMYCIN 1.25 GM/250 ML BAG 250 ML IV SCH (17:54)
[2023-03-08] MEDS: HYDROCODONE/ACETAMINOPHEN 5/325 MG TAB PO PRN (19:21)
[2023-03-08] MEDS ORDERED: ACETAMINOPHEN 325 MG TAB PO PRN (20:30)
[2023-03-08] MEDS: ATORVASTATIN 40 MG TABLET PO SCH (21:12)
[2023-03-08] MEDS: LEVOFLOXACIN 250 MG/D5W 50ML 50 ML IVPB SCH (21:45)
[2023-03-09] VITALS (8 sets, daily range): BP systolic 119–144; BP diastolic 55–65; PULSE 59–98; RESP 17–20; O2SAT 98–99
[2023-03-09] MEDS: CEFEPIME HCL 1 GM VIAL IVPB SCH ×4 (00:08→22:28)
[2023-03-09 04:12] LABS: BASOPHILS # (AUTO) 0.04 K/uL (0.00-0.20); BASOPHILS % (AUTO) 0.5 % (0.0-5.0); EOSINOPHILS # (AUTO) 0.19 K/uL (0.00-0.70); EOSINOPHILS % (AUTO) 2.4 % (0.0-8.0); HEMATOCRIT 30.7 % (42-54); IMMATURE GRANULOCYTE ABSOLUTE 0.02 K/uL (0-1); LYMPHOCYTES # (AUTO) 2.1 K/uL (1.0-4.8); LYMPHOCYTES % (AUTO) 26.1 % (21.0-51.0); MEAN CORPUSCULAR HGB CONC 31.9 g/dL (32.0-36.0); MEAN CORPUSCULAR VOLUME 84.6 fL (79-99); MONOCYTES # (AUTO) 0.6 K/uL (0.1-1.0); MONOCYTES % (AUTO) 7.6 % (3.0-13.0); NEUTROPHILS % (AUTO) 63.1 % (40.0-77.0); PLATELET COUNT (AUTO) 247 K/uL (130-400); RED BLOOD CELL COUNT(AUTO) 3.63 MIL/uL (4.50-6.20); RED CELL DISTRIBUTION WIDTH 15.2 % (11.0-15.5); WHITE BLOOD COUNT (AUTO) 7.9 K/uL (4.8-10.8)
[2023-03-09 04:39] LABS: ALBUMIN 2.4 g/dL (3.5-5.0); BILIRUBIN,TOTAL 0.3 mg/dL (0.2-1.0); CREATININE 1.4 mg/dL (0.5-1.5); POTASSIUM 4.6 mmol/L (3.5-5.1); TOTAL PROTEIN, SERUM 8.6 g/dL (6.0-8.3)
[2023-03-09] MEDS: LEVOTHYROXINE 100 MCG TABLET PO SCH (05:20)
[2023-03-09] MEDS: ENOXAPARIN SODIUM 80 MG/0.8 ML SQ SCH ×2 (05:20→17:33)
[2023-03-09] MEDS: HYDROMORPHONE 0.5 MG SYG (0.5MG/0.5ML) IVP PRN ×4 (05:21→22:34)
[2023-03-09] MEDS: INSULIN HUMULIN R 100 UNIT/ML 3ML SQ SCH ×4 (05:31→20:33)
[2023-03-09] MEDS: PANTOPRAZOLE 40 MG/VIAL IVP SCH (08:39)
[2023-03-09] MEDS: CLOPIDOGREL 75MG TAB PO SCH (08:40)
[2023-03-09] MEDS: METOPROLOL SUCCINATE 50 MG TAB.SR.24H PO SCH ×2 (08:40→20:58)
[2023-03-09] MEDS: HYDROCODONE/ACETAMINOPHEN 5/325 MG TAB PO PRN ×2 (13:46→23:45)
[2023-03-09] MEDS: VANCOMYCIN 1.25 GM/250 ML BAG 250 ML IV SCH (17:32)
[2023-03-09] MEDS: ATORVASTATIN 40 MG TABLET PO SCH (20:58)
[2023-03-09] MEDS: LEVOFLOXACIN 250 MG/D5W 50ML 50 ML IVPB SCH (20:58)
[2023-03-10] MEDS: HYDROMORPHONE 0.5 MG SYG (0.5MG/0.5ML) IVP PRN ×3 (02:30→17:09)
[2023-03-10 03:24] VITALS: BP 135/64; PULSE 61; RESP 17
[2023-03-10 05:21] LABS: BASOPHILS # (AUTO) 0.04 K/uL (0.00-0.20); BASOPHILS % (AUTO) 0.6 % (0.0-5.0); EOSINOPHILS % (AUTO) 2.8 % (0.0-8.0); IMMATURE GRANULOCYTE ABSOLUTE 0.02 K/uL (0-1); LYMPHOCYTES % (AUTO) 27.6 % (21.0-51.0); MEAN CORPUSCULAR HEMOGLOBIN 26.2 pg (27.0-33.0); MEAN CORPUSCULAR HGB CONC 31.4 g/dL (32.0-36.0); MEAN CORPUSCULAR VOLUME 83.3 fL (79-99); MONOCYTES # (AUTO) 0.6 K/uL (0.1-1.0); MONOCYTES % (AUTO) 7.8 % (3.0-13.0); NEUTROPHILS # (AUTO) 4.4 K/uL (1.8-7.7); NEUTROPHILS % (AUTO) 60.9 % (40.0-77.0); PLATELET COUNT (AUTO) 235 K/uL (130-400); RED BLOOD CELL COUNT(AUTO) 3.36 MIL/uL (4.50-6.20); RED CELL DISTRIBUTION WIDTH 14.9 % (11.0-15.5); WHITE BLOOD COUNT (AUTO) 7.2 K/uL (4.8-10.8)
[2023-03-10] MEDS: HYDROCODONE/ACETAMINOPHEN 5/325 MG TAB PO PRN ×3 (05:41→22:40)
[2023-03-10 05:42] LABS: ALBUMIN 2.3 g/dL (3.5-5.0); BILIRUBIN,TOTAL 0.3 mg/dL (0.2-1.0); CREATININE 1.2 mg/dL (0.5-1.5); POTASSIUM 3.6 mmol/L (3.5-5.1); TOTAL PROTEIN, SERUM 8.2 g/dL (6.0-8.3)
[2023-03-10] MEDS: ENOXAPARIN SODIUM 80 MG/0.8 ML SQ SCH ×2 (05:43→18:55)
[2023-03-10] MEDS: CEFEPIME HCL 1 GM VIAL IVPB SCH ×3 (05:43→22:34)
[2023-03-10] MEDS: INSULIN HUMULIN R 100 UNIT/ML 3ML SQ SCH ×4 (05:48→20:04)
[2023-03-10] MEDS: LEVOTHYROXINE 100 MCG TABLET PO SCH (05:48)
[2023-03-10 08:00] VITALS: BP 150/66; PULSE 63; RESP 18; O2SAT 98
[2023-03-10] MEDS: METOPROLOL SUCCINATE 50 MG TAB.SR.24H PO SCH ×2 (08:48→20:28)
[2023-03-10] MEDS: PANTOPRAZOLE 40 MG/VIAL IVP SCH (08:48)
[2023-03-10] MEDS: CLOPIDOGREL 75MG TAB PO SCH (08:49)
[2023-03-10 12:00] VITALS: BP 156/61; PULSE 57; RESP 18
[2023-03-10] MEDS: VANCOMYCIN 1.25 GM/250 ML BAG 250 ML IV SCH (17:07)
[2023-03-10] MEDS: KCL 20 MEQ ERTAB PO PRN (18:57)
[2023-03-10 20:00] VITALS: O2SAT 98
[2023-03-10 20:07] VITALS: BP 156/76; PULSE 65; RESP 18
[2023-03-10] MEDS: ATORVASTATIN 40 MG TABLET PO SCH (20:28)
[2023-03-10] MEDS: LEVOFLOXACIN 250 MG/D5W 50ML 50 ML IVPB SCH (20:28)
[2023-03-10 23:49] VITALS: BP 141/58; PULSE 64; RESP 20
[2023-03-11] MEDS ORDERED: HYDROMORPHONE 0.5 MG SYG (0.5MG/0.5ML) ONE (03:17)
[2023-03-11] MEDS: HYDROMORPHONE 0.5 MG SYG (0.5MG/0.5ML) IVP PRN ×4 (03:44→20:09)
[2023-03-11 04:41] VITALS: BP 174/66; PULSE 53; RESP 19
[2023-03-11] MEDS: ENOXAPARIN SODIUM 80 MG/0.8 ML SQ SCH ×2 (05:57→17:25)
[2023-03-11] MEDS: CEFEPIME HCL 1 GM VIAL IVPB SCH ×3 (05:57→23:44)
[2023-03-11] MEDS: INSULIN HUMULIN R 100 UNIT/ML 3ML SQ SCH ×4 (05:58→20:10)
[2023-03-11] MEDS: LEVOTHYROXINE 100 MCG TABLET PO SCH (05:58)
[2023-03-11 08:00] VITALS: BP 126/70; PULSE 65; RESP 18; O2SAT 97
[2023-03-11] MEDS: PANTOPRAZOLE 40 MG/VIAL IVP SCH (08:49)
[2023-03-11] MEDS: METOPROLOL SUCCINATE 50 MG TAB.SR.24H PO SCH ×2 (08:49→20:09)
[2023-03-11] MEDS: CLOPIDOGREL 75MG TAB PO SCH (08:49)
[2023-03-11 10:32] LABS: BASOPHILS # (AUTO) 0.03 K/uL (0.00-0.20); BASOPHILS % (AUTO) 0.4 % (0.0-5.0); EOSINOPHILS # (AUTO) 0.14 K/uL (0.00-0.70); EOSINOPHILS % (AUTO) 1.7 % (0.0-8.0); IMMATURE GRANULOCYTE ABSOLUTE 0.03 K/uL (0-1); LYMPHOCYTES # (AUTO) 1.6 K/uL (1.0-4.8); LYMPHOCYTES % (AUTO) 20.4 % (21.0-51.0); MEAN CORPUSCULAR HEMOGLOBIN 26.5 pg (27.0-33.0); MEAN CORPUSCULAR HGB CONC 31.7 g/dL (32.0-36.0); MEAN CORPUSCULAR VOLUME 83.8 fL (79-99); MONOCYTES # (AUTO) 0.6 K/uL (0.1-1.0); MONOCYTES % (AUTO) 7.1 % (3.0-13.0); NEUTROPHILS # (AUTO) 5.6 K/uL (1.8-7.7); PLATELET COUNT (AUTO) 232 K/uL (130-400); RED BLOOD CELL COUNT(AUTO) 3.58 MIL/uL (4.50-6.20); RED CELL DISTRIBUTION WIDTH 14.9 % (11.0-15.5)
[2023-03-11 10:39] LABS: CREATININE 1.1 mg/dL (0.5-1.5)
[2023-03-11 10:44] LABS: ALBUMIN 2.4 g/dL (3.5-5.0); BILIRUBIN,TOTAL 0.3 mg/dL (0.2-1.0); TOTAL PROTEIN, SERUM 8.7 g/dL (6.0-8.3)
[2023-03-11 11:25] VITALS: BP 125/63; PULSE 65; RESP 20
[2023-03-11 16:00] VITALS: BP 153/64; PULSE 58; RESP 20
[2023-03-11] MEDS: VANCOMYCIN 1.25 GM/250 ML BAG 250 ML IV SCH (17:24)
[2023-03-11 20:00] VITALS: BP 177/78; PULSE 65; RESP 18; O2SAT 97
[2023-03-11] MEDS: LEVOFLOXACIN 250 MG/D5W 50ML 50 ML IVPB SCH (20:08)
[2023-03-11] MEDS: ATORVASTATIN 40 MG TABLET PO SCH (20:09)
[2023-03-12] VITALS (9 sets, daily range): BP systolic 104–154; BP diastolic 55–72; PULSE 54–66; RESP 17–20; O2SAT 97–98
[2023-03-12] MEDS: HYDROMORPHONE 0.5 MG SYG (0.5MG/0.5ML) IVP PRN ×3 (00:12→09:07)
[2023-03-12 05:17] LABS: BASOPHILS # (AUTO) 0.05 K/uL (0.00-0.20); BASOPHILS % (AUTO) 0.6 % (0.0-5.0); EOSINOPHILS % (AUTO) 2.5 % (0.0-8.0); HEMATOCRIT 29.6 % (42-54); IMMATURE GRANULOCYTE ABSOLUTE 0.03 K/uL (0-1); LYMPHOCYTES # (AUTO) 2.5 K/uL (1.0-4.8); LYMPHOCYTES % (AUTO) 30.5 % (21.0-51.0); MEAN CORPUSCULAR HEMOGLOBIN 26.5 pg (27.0-33.0); MEAN CORPUSCULAR HGB CONC 32.1 g/dL (32.0-36.0); MEAN CORPUSCULAR VOLUME 82.7 fL (79-99); MONOCYTES # (AUTO) 0.7 K/uL (0.1-1.0); MONOCYTES % (AUTO) 8.1 % (3.0-13.0); NEUTROPHILS # (AUTO) 4.7 K/uL (1.8-7.7); NEUTROPHILS % (AUTO) 57.9 % (40.0-77.0); PLATELET COUNT (AUTO) 254 K/uL (130-400); RED BLOOD CELL COUNT(AUTO) 3.58 MIL/uL (4.50-6.20); RED CELL DISTRIBUTION WIDTH 14.7 % (11.0-15.5); WHITE BLOOD COUNT (AUTO) 8.1 K/uL (4.8-10.8)
[2023-03-12 05:58] LABS: ALBUMIN 2.4 g/dL (3.5-5.0); BILIRUBIN,TOTAL 0.3 mg/dL (0.2-1.0); POTASSIUM 3.5 mmol/L (3.5-5.1); TOTAL PROTEIN, SERUM 8.7 g/dL (6.0-8.3)
[2023-03-12] MEDS: LEVOTHYROXINE 100 MCG TABLET PO SCH (06:16)
[2023-03-12] MEDS: ENOXAPARIN SODIUM 80 MG/0.8 ML SQ SCH ×2 (06:17→17:13)
[2023-03-12] MEDS: CEFEPIME HCL 1 GM VIAL IVPB SCH ×3 (06:17→23:13)
[2023-03-12] MEDS: INSULIN HUMULIN R 100 UNIT/ML 3ML SQ SCH ×4 (06:18→21:29)
[2023-03-12] MEDS: PANTOPRAZOLE 40 MG/VIAL IVP SCH (09:07)
[2023-03-12] MEDS: CLOPIDOGREL 75MG TAB PO SCH (09:07)
[2023-03-12] MEDS: METOPROLOL SUCCINATE 50 MG TAB.SR.24H PO SCH ×2 (09:07→21:17)
[2023-03-12] MEDS: HYDROMORPHONE 1 MG INJ IVP PRN ×3 (13:30→21:16)
[2023-03-12] MEDS: VANCOMYCIN 1.25 GM/250 ML BAG 250 ML IV SCH (17:13)
[2023-03-12] MEDS: LEVOFLOXACIN 250 MG/D5W 50ML 50 ML IVPB SCH (21:17)
[2023-03-12] MEDS: ATORVASTATIN 40 MG TABLET PO SCH (21:17)
[2023-03-13] VITALS (7 sets, daily range): BP systolic 130–151; BP diastolic 56–74; PULSE 55–74; RESP 18–20; O2SAT 95–96
[2023-03-13] MEDS: HYDROMORPHONE 1 MG INJ IVP PRN ×5 (01:07→23:14)
[2023-03-13 05:56] LABS: BASOPHILS # (AUTO) 0.05 K/uL (0.00-0.20); BASOPHILS % (AUTO) 0.7 % (0.0-5.0); EOSINOPHILS % (AUTO) 2.7 % (0.0-8.0); HEMATOCRIT 29.1 % (42-54); IMMATURE GRANULOCYTE ABSOLUTE 0.04 K/uL (0-1); LYMPHOCYTES # (AUTO) 2.4 K/uL (1.0-4.8); LYMPHOCYTES % (AUTO) 32.4 % (21.0-51.0); MEAN CORPUSCULAR HEMOGLOBIN 26.4 pg (27.0-33.0); MEAN CORPUSCULAR HGB CONC 31.6 g/dL (32.0-36.0); MEAN CORPUSCULAR VOLUME 83.6 fL (79-99); MONOCYTES # (AUTO) 0.7 K/uL (0.1-1.0); MONOCYTES % (AUTO) 9.4 % (3.0-13.0); NEUTROPHILS % (AUTO) 54.3 % (40.0-77.0); PLATELET COUNT (AUTO) 249 K/uL (130-400); RED BLOOD CELL COUNT(AUTO) 3.48 MIL/uL (4.50-6.20); WHITE BLOOD COUNT (AUTO) 7.3 K/uL (4.8-10.8)
[2023-03-13] MEDS: INSULIN HUMULIN R 100 UNIT/ML 3ML SQ SCH ×4 (06:01→21:00)
[2023-03-13] MEDS: CEFEPIME HCL 1 GM VIAL IVPB SCH ×3 (06:03→23:04)
[2023-03-13] MEDS: LEVOTHYROXINE 100 MCG TABLET PO SCH (06:04)
[2023-03-13] MEDS: ENOXAPARIN SODIUM 80 MG/0.8 ML SQ SCH ×2 (06:04→17:48)
[2023-03-13 06:25] LABS: ALBUMIN 2.3 g/dL (3.5-5.0); BILIRUBIN,TOTAL 0.3 mg/dL (0.2-1.0); CREATININE 0.9 mg/dL (0.5-1.5); POTASSIUM 3.8 mmol/L (3.5-5.1); TOTAL PROTEIN, SERUM 8.3 g/dL (6.0-8.3)
[2023-03-13] MEDS: METOPROLOL SUCCINATE 50 MG TAB.SR.24H PO SCH ×2 (09:28→23:04)
[2023-03-13] MEDS: PANTOPRAZOLE 40 MG/VIAL IVP SCH (09:29)
[2023-03-13] MEDS: VANCOMYCIN 1.25 GM/250 ML BAG 250 ML IV SCH (17:48)
[2023-03-13] MEDS: HYDROCODONE/ACETAMINOPHEN 5/325 MG TAB PO PRN (18:58)
[2023-03-13] MEDS: ATORVASTATIN 40 MG TABLET PO SCH (23:03)
[2023-03-13] MEDS: HONEY 1 APPL/ML TUBE TP SCH (23:15)
[2023-03-14] MEDS: LEVOFLOXACIN 250 MG/D5W 50ML 50 ML IVPB SCH ×2 (00:39→20:09)
[2023-03-14 03:20] VITALS: BP 148/59; PULSE 61; RESP 18
[2023-03-14] MEDS: HYDROMORPHONE 1 MG INJ IVP PRN ×5 (04:24→22:02)
[2023-03-14] MEDS: CEFEPIME HCL 1 GM VIAL IVPB SCH ×3 (04:25→21:52)
[2023-03-14] MEDS: ENOXAPARIN SODIUM 80 MG/0.8 ML SQ SCH ×2 (04:25→17:28)
[2023-03-14 06:03] LABS: BASOPHILS # (AUTO) 0.04 K/uL (0.00-0.20); BASOPHILS % (AUTO) 0.6 % (0.0-5.0); EOSINOPHILS # (AUTO) 0.19 K/uL (0.00-0.70); EOSINOPHILS % (AUTO) 2.8 % (0.0-8.0); IMMATURE GRANULOCYTE ABSOLUTE 0.03 K/uL (0-1); LYMPHOCYTES # (AUTO) 2.1 K/uL (1.0-4.8); LYMPHOCYTES % (AUTO) 31.4 % (21.0-51.0); MEAN CORPUSCULAR HEMOGLOBIN 26.5 pg (27.0-33.0); MEAN CORPUSCULAR HGB CONC 31.1 g/dL (32.0-36.0); MEAN CORPUSCULAR VOLUME 85.4 fL (79-99); MONOCYTES # (AUTO) 0.6 K/uL (0.1-1.0); MONOCYTES % (AUTO) 8.7 % (3.0-13.0); NEUTROPHILS # (AUTO) 3.8 K/uL (1.8-7.7); NEUTROPHILS % (AUTO) 56.1 % (40.0-77.0); PLATELET COUNT (AUTO) 254 K/uL (130-400); RED BLOOD CELL COUNT(AUTO) 3.28 MIL/uL (4.50-6.20); RED CELL DISTRIBUTION WIDTH 15.2 % (11.0-15.5); WHITE BLOOD COUNT (AUTO) 6.8 K/uL (4.8-10.8)
[2023-03-14] MEDS: LEVOTHYROXINE 100 MCG TABLET PO SCH (06:30)
[2023-03-14] MEDS: INSULIN HUMULIN R 100 UNIT/ML 3ML SQ SCH ×4 (06:30→20:34)
[2023-03-14 06:37] LABS: ALBUMIN 2.2 g/dL (3.5-5.0); BILIRUBIN,TOTAL 0.3 mg/dL (0.2-1.0); CREATININE 0.9 mg/dL (0.5-1.5); POTASSIUM 3.4 mmol/L (3.5-5.1); TOTAL PROTEIN, SERUM 7.9 g/dL (6.0-8.3)
[2023-03-14 08:00] VITALS: BP 151/68; PULSE 62; RESP 17
[2023-03-14] MEDS: HONEY 1 APPL/ML TUBE TP SCH (09:08)
[2023-03-14] MEDS: PANTOPRAZOLE 40 MG/VIAL IVP SCH (09:10)
[2023-03-14] MEDS: METOPROLOL SUCCINATE 50 MG TAB.SR.24H PO SCH ×2 (09:10→20:10)
[2023-03-14] MEDS: KCL 20 MEQ ERTAB PO PRN ×2 (09:11→12:35)
[2023-03-14 11:53] VITALS: BP 144/60; PULSE 63; RESP 18
[2023-03-14 15:44] VITALS: BP 164/68; PULSE 61; RESP 18
[2023-03-14] MEDS: HYDROCODONE/ACETAMINOPHEN 5/325 MG TAB PO PRN (15:56)
[2023-03-14] MEDS: VANCOMYCIN 1.25 GM/250 ML BAG 250 ML IV SCH (17:27)
[2023-03-14 20:00] VITALS: BP 146/71; PULSE 61; RESP 18
[2023-03-14] MEDS: ATORVASTATIN 40 MG TABLET PO SCH (20:10)
[2023-03-15] VITALS: BP 143/58; PULSE 70; RESP 18
[2023-03-15] MEDS: HYDROMORPHONE 1 MG INJ IVP PRN ×6 (02:03→23:01)
[2023-03-15 04:00] VITALS: BP 142/66; PULSE 58; RESP 18
[2023-03-15 05:15] LABS: BASOPHILS # (AUTO) 0.04 K/uL (0.00-0.20); BASOPHILS % (AUTO) 0.5 % (0.0-5.0); EOSINOPHILS # (AUTO) 0.18 K/uL (0.00-0.70); EOSINOPHILS % (AUTO) 2.4 % (0.0-8.0); HEMATOCRIT 28.5 % (42-54); IMMATURE GRANULOCYTE ABSOLUTE 0.04 K/uL (0-1); LYMPHOCYTES # (AUTO) 2.2 K/uL (1.0-4.8); LYMPHOCYTES % (AUTO) 30.1 % (21.0-51.0); MEAN CORPUSCULAR HEMOGLOBIN 26.5 pg (27.0-33.0); MEAN CORPUSCULAR HGB CONC 31.6 g/dL (32.0-36.0); MEAN CORPUSCULAR VOLUME 83.8 fL (79-99); MONOCYTES # (AUTO) 0.7 K/uL (0.1-1.0); MONOCYTES % (AUTO) 9.1 % (3.0-13.0); NEUTROPHILS # (AUTO) 4.3 K/uL (1.8-7.7); NEUTROPHILS % (AUTO) 57.4 % (40.0-77.0); PLATELET COUNT (AUTO) 265 K/uL (130-400); RED CELL DISTRIBUTION WIDTH 15.2 % (11.0-15.5); WHITE BLOOD COUNT (AUTO) 7.4 K/uL (4.8-10.8)
[2023-03-15 05:43] LABS: ALBUMIN 2.2 g/dL (3.5-5.0); BILIRUBIN,TOTAL 0.3 mg/dL (0.2-1.0); CREATININE 0.9 mg/dL (0.5-1.5); POTASSIUM 3.7 mmol/L (3.5-5.1); TOTAL PROTEIN, SERUM 8.3 g/dL (6.0-8.3)
[2023-03-15] MEDS: CEFEPIME HCL 1 GM VIAL IVPB SCH ×3 (06:09→22:02)
[2023-03-15] MEDS: LEVOTHYROXINE 100 MCG TABLET PO SCH (06:09)
[2023-03-15] MEDS: KCL 20 MEQ ERTAB PO PRN (06:10)
[2023-03-15] MEDS: ENOXAPARIN SODIUM 80 MG/0.8 ML SQ SCH ×2 (06:20→17:41)
[2023-03-15] MEDS: INSULIN HUMULIN R 100 UNIT/ML 3ML SQ SCH ×4 (06:24→20:41)
[2023-03-15 08:00] VITALS: BP 160/81; PULSE 60; RESP 18
[2023-03-15] MEDS: PANTOPRAZOLE 40 MG/VIAL IVP SCH (08:49)
[2023-03-15] MEDS: METOPROLOL SUCCINATE 50 MG TAB.SR.24H PO SCH ×2 (08:49→20:10)
[2023-03-15] MEDS: HYDROCODONE/ACETAMINOPHEN 5/325 MG TAB PO PRN (08:50)
[2023-03-15] MEDS: HONEY 1 APPL/ML TUBE TP SCH (08:51)
[2023-03-15 12:00] VITALS: BP 151/65; PULSE 70; RESP 17
[2023-03-15 16:00] VITALS: BP 153/66; PULSE 61; RESP 16
[2023-03-15] MEDS: HYDROCODONE/ACETAMINOPHEN 10/325 MG TAB PO PRN (17:38)
[2023-03-15] MEDS: VANCOMYCIN 1.25 GM/250 ML BAG 250 ML IV SCH (18:34)
[2023-03-15 20:00] VITALS: BP 170/73; PULSE 71; RESP 20
[2023-03-15] MEDS: ATORVASTATIN 40 MG TABLET PO SCH (20:10)
[2023-03-15] MEDS: LEVOFLOXACIN 250 MG/D5W 50ML 50 ML IVPB SCH (20:10)
[2023-03-16] VITALS: BP 146/71; PULSE 56; RESP 20
[2023-03-16] MEDS: HYDROMORPHONE 1 MG INJ IVP PRN ×6 (02:59→21:18)
[2023-03-16 04:00] VITALS: BP 157/74; PULSE 62; RESP 20
[2023-03-16 05:18] LABS: BASOPHILS # (AUTO) 0.04 K/uL (0.00-0.20); BASOPHILS % (AUTO) 0.6 % (0.0-5.0); EOSINOPHILS # (AUTO) 0.15 K/uL (0.00-0.70); EOSINOPHILS % (AUTO) 2.2 % (0.0-8.0); HEMATOCRIT 30.4 % (42-54); IMMATURE GRANULOCYTE ABSOLUTE 0.03 K/uL (0-1); LYMPHOCYTES % (AUTO) 28.8 % (21.0-51.0); MEAN CORPUSCULAR HEMOGLOBIN 26.3 pg (27.0-33.0); MEAN CORPUSCULAR HGB CONC 30.9 g/dL (32.0-36.0); MEAN CORPUSCULAR VOLUME 84.9 fL (79-99); MONOCYTES # (AUTO) 0.6 K/uL (0.1-1.0); MONOCYTES % (AUTO) 8.5 % (3.0-13.0); NEUTROPHILS # (AUTO) 4.1 K/uL (1.8-7.7); NEUTROPHILS % (AUTO) 59.5 % (40.0-77.0); PLATELET COUNT (AUTO) 229 K/uL (130-400); RED BLOOD CELL COUNT(AUTO) 3.58 MIL/uL (4.50-6.20); RED CELL DISTRIBUTION WIDTH 15.1 % (11.0-15.5)
[2023-03-16 05:49] LABS: ALBUMIN 2.2 g/dL (3.5-5.0); BILIRUBIN,TOTAL 0.3 mg/dL (0.2-1.0); CREATININE 0.9 mg/dL (0.5-1.5); POTASSIUM 3.8 mmol/L (3.5-5.1); TOTAL PROTEIN, SERUM 8.3 g/dL (6.0-8.3)
[2023-03-16] MEDS: LEVOTHYROXINE 100 MCG TABLET PO SCH (06:20)
[2023-03-16] MEDS: CEFEPIME HCL 1 GM VIAL IVPB SCH ×3 (06:20→21:17)
[2023-03-16] MEDS: INSULIN HUMULIN R 100 UNIT/ML 3ML SQ SCH ×4 (06:21→20:37)
[2023-03-16] MEDS: ENOXAPARIN SODIUM 80 MG/0.8 ML SQ SCH ×2 (06:21→18:14)
[2023-03-16] MEDS: METOPROLOL SUCCINATE 50 MG TAB.SR.24H PO SCH ×2 (07:45→19:33)
[2023-03-16] MEDS: PANTOPRAZOLE 40 MG/VIAL IVP SCH (07:46)
[2023-03-16] MEDS: HONEY 1 APPL/ML TUBE TP SCH (07:52)
[2023-03-16 08:00] VITALS: BP 162/69; PULSE 70; RESP 18
[2023-03-16] MEDS: HYDROCODONE/ACETAMINOPHEN 10/325 MG TAB PO PRN (09:33)
[2023-03-16 12:00] VITALS: BP 145/67; PULSE 67; RESP 18
[2023-03-16 16:00] VITALS: BP 122/62; PULSE 60; RESP 18
[2023-03-16] MEDS: VANCOMYCIN 1.5 GM/250 ML BAG 250 ML IV SCH (18:14)
[2023-03-16] MEDS: ATORVASTATIN 40 MG TABLET PO SCH (19:33)
[2023-03-16] MEDS: LEVOFLOXACIN 250 MG/D5W 50ML 50 ML IVPB SCH (19:33)
[2023-03-16 20:00] VITALS: BP 158/78; PULSE 63; RESP 20
[2023-03-17] VITALS (8 sets, daily range): BP systolic 132–160; BP diastolic 58–75; PULSE 59–73; RESP 18–20; O2SAT 96
[2023-03-17] MEDS: HYDROMORPHONE 1 MG INJ IVP PRN ×7 (01:49→23:02)
[2023-03-17 05:35] LABS: BASOPHILS # (AUTO) 0.04 K/uL (0.00-0.20); BASOPHILS % (AUTO) 0.6 % (0.0-5.0); EOSINOPHILS # (AUTO) 0.15 K/uL (0.00-0.70); EOSINOPHILS % (AUTO) 2.3 % (0.0-8.0); HEMATOCRIT 28.2 % (42-54); IMMATURE GRANULOCYTE ABSOLUTE 0.03 K/uL (0-1); LYMPHOCYTES # (AUTO) 2.2 K/uL (1.0-4.8); LYMPHOCYTES % (AUTO) 33.6 % (21.0-51.0); MEAN CORPUSCULAR HEMOGLOBIN 26.6 pg (27.0-33.0); MEAN CORPUSCULAR HGB CONC 31.2 g/dL (32.0-36.0); MEAN CORPUSCULAR VOLUME 85.2 fL (79-99); MONOCYTES # (AUTO) 0.6 K/uL (0.1-1.0); NEUTROPHILS # (AUTO) 3.5 K/uL (1.8-7.7); PLATELET COUNT (AUTO) 238 K/uL (130-400); RED BLOOD CELL COUNT(AUTO) 3.31 MIL/uL (4.50-6.20); WHITE BLOOD COUNT (AUTO) 6.5 K/uL (4.8-10.8)
[2023-03-17] MEDS: LEVOTHYROXINE 100 MCG TABLET PO SCH (05:36)
[2023-03-17] MEDS: CEFEPIME HCL 1 GM VIAL IVPB SCH ×3 (05:36→22:20)
[2023-03-17] MEDS: ENOXAPARIN SODIUM 80 MG/0.8 ML SQ SCH ×2 (05:45→16:40)
[2023-03-17 05:52] LABS: ALBUMIN 2.2 g/dL (3.5-5.0); BILIRUBIN,TOTAL 0.3 mg/dL (0.2-1.0); CREATININE 0.9 mg/dL (0.5-1.5); POTASSIUM 3.7 mmol/L (3.5-5.1); TOTAL PROTEIN, SERUM 8.4 g/dL (6.0-8.3)
[2023-03-17] MEDS: INSULIN HUMULIN R 100 UNIT/ML 3ML SQ SCH ×4 (06:03→21:18)
[2023-03-17] MEDS: METOPROLOL SUCCINATE 50 MG TAB.SR.24H PO SCH ×2 (08:33→21:15)
[2023-03-17] MEDS: PANTOPRAZOLE 40 MG/VIAL IVP SCH (08:33)
[2023-03-17] MEDS: HONEY 1 APPL/ML TUBE TP SCH (08:50)
[2023-03-17] MEDS: VANCOMYCIN 1.5 GM/250 ML BAG 250 ML IV SCH (17:27)
[2023-03-17 18:54] LABS: SARS-CoV-2, RNA, NAAT NEGATIVE SARS CoV-2 (NEGATIVE)
[2023-03-17] MEDS: LEVOFLOXACIN 250 MG/D5W 50ML 50 ML IVPB SCH (21:14)
[2023-03-17] MEDS: ATORVASTATIN 40 MG TABLET PO SCH (21:15)
[2023-03-18] VITALS (29 sets, daily range): BP systolic 118–174; BP diastolic 63–91; PULSE 67–102; RESP 11–20; O2SAT 98
[2023-03-18] MEDS: HYDROMORPHONE 1 MG INJ IVP PRN ×3 (04:44→13:11)
[2023-03-18 05:33] LABS: BASOPHILS # (AUTO) 0.05 K/uL (0.00-0.20); BASOPHILS % (AUTO) 0.7 % (0.0-5.0); EOSINOPHILS # (AUTO) 0.14 K/uL (0.00-0.70); HEMATOCRIT 27.8 % (42-54); IMMATURE GRANULOCYTE ABSOLUTE 0.03 K/uL (0-1); LYMPHOCYTES # (AUTO) 1.7 K/uL (1.0-4.8); LYMPHOCYTES % (AUTO) 24.2 % (21.0-51.0); MEAN CORPUSCULAR HEMOGLOBIN 26.8 pg (27.0-33.0); MEAN CORPUSCULAR HGB CONC 31.3 g/dL (32.0-36.0); MEAN CORPUSCULAR VOLUME 85.5 fL (79-99); MONOCYTES # (AUTO) 0.6 K/uL (0.1-1.0); MONOCYTES % (AUTO) 8.5 % (3.0-13.0); NEUTROPHILS # (AUTO) 4.6 K/uL (1.8-7.7); NEUTROPHILS % (AUTO) 64.2 % (40.0-77.0); PLATELET COUNT (AUTO) 233 K/uL (130-400); RED BLOOD CELL COUNT(AUTO) 3.25 MIL/uL (4.50-6.20); RED CELL DISTRIBUTION WIDTH 14.9 % (11.0-15.5); WHITE BLOOD COUNT (AUTO) 7.1 K/uL (4.8-10.8)
[2023-03-18] MEDS: ENOXAPARIN SODIUM 80 MG/0.8 ML SQ SCH ×2 (05:52→18:00)
[2023-03-18 05:58] LABS: ALBUMIN 2.2 g/dL (3.5-5.0); BILIRUBIN,TOTAL 0.3 mg/dL (0.2-1.0); CREATININE 0.9 mg/dL (0.5-1.5); MAGNESIUM 1.5 mg/dL (1.80-2.40); POTASSIUM 3.3 mmol/L (3.5-5.1); TOTAL PROTEIN, SERUM 8.3 g/dL (6.0-8.3)
[2023-03-18] MEDS: CEFEPIME HCL 1 GM VIAL IVPB SCH ×3 (05:58→22:06)
[2023-03-18] MEDS: LEVOTHYROXINE 100 MCG TABLET PO SCH (06:23)
[2023-03-18] MEDS: INSULIN HUMULIN R 100 UNIT/ML 3ML SQ SCH ×4 (06:23→21:28)
[2023-03-18] MEDS: METOPROLOL SUCCINATE 50 MG TAB.SR.24H PO SCH ×2 (09:00→21:25)
[2023-03-18] MEDS: PANTOPRAZOLE 40 MG/VIAL IVP SCH (09:32)
[2023-03-18] MEDS: HONEY 1 APPL/ML TUBE TP SCH (09:38)
[2023-03-18] MEDS ORDERED: PROPOFOL 10 MG/ML 20ML VIAL IV ONE (13:41)
[2023-03-18] MEDS ORDERED: LIDOCAINE PF 100MG/5ML (2%) SYRINGE 5ML ONE (13:41)
[2023-03-18] MEDS ORDERED: FENTANYL CITRATE PF 50 MCG/1 ML 2ML VIAL ONE (13:42)
[2023-03-18] MEDS ORDERED: ROCURONIUM 10MG/1ML SYR 10 MG/ML ML ONE (13:42)
[2023-03-18] MEDS ORDERED: ROPIVACAINE 0.5% 5MG/ML 30ML IJ ONE (13:46)
[2023-03-18] MEDS ORDERED: PHENYLEPHRINE HCL 10 MG/ML 1ML VIAL IV ONE (14:16)
[2023-03-18] MEDS ORDERED: EPHEDRINE SULFATE 50 MG/ML AMPULE ONE (15:32)
[2023-03-18] MEDS ORDERED: MEPERIDINE-PF 25 MG/ML SYG ONE (16:50)
[2023-03-18] MEDS ORDERED: MIDAZOLAM HCL 1 MG/ML 2ML VIAL ONE (16:50)
[2023-03-18] MEDS: VANCOMYCIN 1.5 GM/250 ML BAG 250 ML IV SCH (17:00)
[2023-03-18] MEDS: LEVOFLOXACIN 250 MG/D5W 50ML 50 ML IVPB SCH (21:24)
[2023-03-18] MEDS: ATORVASTATIN 40 MG TABLET PO SCH (21:25)
[2023-03-19] VITALS (7 sets, daily range): BP systolic 145–154; BP diastolic 69–83; PULSE 70–87; RESP 18–20; O2SAT 96–97
[2023-03-19] MEDS: CEFEPIME HCL 1 GM VIAL IVPB SCH ×3 (05:44→21:31)
[2023-03-19] MEDS: LEVOTHYROXINE 100 MCG TABLET PO SCH (05:45)
[2023-03-19] MEDS: ENOXAPARIN SODIUM 80 MG/0.8 ML SQ SCH ×2 (05:45→19:25)
[2023-03-19 05:53] LABS: BASOPHILS # (AUTO) 0.02 K/uL (0.00-0.20); BASOPHILS % (AUTO) 0.2 % (0.0-5.0); HEMATOCRIT 26.6 % (42-54); IMMATURE GRANULOCYTE ABSOLUTE 0.05 K/uL (0-1); LYMPHOCYTES % (AUTO) 10.6 % (21.0-51.0); MEAN CORPUSCULAR HEMOGLOBIN 26.6 pg (27.0-33.0); MEAN CORPUSCULAR VOLUME 83.1 fL (79-99); MONOCYTES # (AUTO) 0.5 K/uL (0.1-1.0); MONOCYTES % (AUTO) 4.8 % (3.0-13.0); NEUTROPHILS # (AUTO) 8.1 K/uL (1.8-7.7); NEUTROPHILS % (AUTO) 83.9 % (40.0-77.0); PLATELET COUNT (AUTO) 251 K/uL (130-400); RED CELL DISTRIBUTION WIDTH 15.1 % (11.0-15.5); WHITE BLOOD COUNT (AUTO) 9.7 K/uL (4.8-10.8)
[2023-03-19 06:13] LABS: ALBUMIN 2.1 g/dL (3.5-5.0); BILIRUBIN,TOTAL 0.3 mg/dL (0.2-1.0); TOTAL PROTEIN, SERUM 8.3 g/dL (6.0-8.3)
[2023-03-19] MEDS: INSULIN HUMULIN R 100 UNIT/ML 3ML SQ SCH ×4 (06:23→20:29)
[2023-03-19 06:31] LABS: POTASSIUM 3.5 mmol/L (3.5-5.1)
[2023-03-19] MEDS: HYDROCODONE/ACETAMINOPHEN 10/325 MG TAB PO PRN ×2 (08:25→20:40)
[2023-03-19] MEDS: PANTOPRAZOLE 40 MG/VIAL IVP SCH (08:27)
[2023-03-19] MEDS: METOPROLOL SUCCINATE 50 MG TAB.SR.24H PO SCH ×2 (08:27→20:31)
[2023-03-19] MEDS: HONEY 1 APPL/ML TUBE TP SCH (09:00)
[2023-03-19] MEDS: HYDROMORPHONE 1 MG INJ IVP PRN ×4 (10:53→21:31)
[2023-03-19] MEDS: VANCOMYCIN 1.5 GM/250 ML BAG 250 ML IV SCH (17:38)
[2023-03-19] MEDS: ATORVASTATIN 40 MG TABLET PO SCH (20:31)
[2023-03-19] MEDS: LEVOFLOXACIN 250 MG/D5W 50ML 50 ML IVPB SCH (20:31)
[2023-03-20] VITALS (7 sets, daily range): BP systolic 144–178; BP diastolic 63–77; PULSE 66–75; RESP 17–20; O2SAT 98
[2023-03-20] MEDS: HYDROMORPHONE 1 MG INJ IVP PRN ×5 (00:47→13:34)
[2023-03-20] MEDS ORDERED: HYDRALAZINE 20MG/ML VIAL IV ONE (05:00)
[2023-03-20] MEDS: ENOXAPARIN SODIUM 80 MG/0.8 ML SQ SCH (05:01)
[2023-03-20] MEDS: LEVOTHYROXINE 100 MCG TABLET PO SCH (05:02)
[2023-03-20] MEDS: CEFEPIME HCL 1 GM VIAL IVPB SCH (05:02)
[2023-03-20 05:33] LABS: BASOPHILS # (AUTO) 0.05 K/uL (0.00-0.20); BASOPHILS % (AUTO) 0.5 % (0.0-5.0); EOSINOPHILS # (AUTO) 0.02 K/uL (0.00-0.70); EOSINOPHILS % (AUTO) 0.2 % (0.0-8.0); IMMATURE GRANULOCYTE ABSOLUTE 0.05 K/uL (0-1); LYMPHOCYTES # (AUTO) 2.1 K/uL (1.0-4.8); LYMPHOCYTES % (AUTO) 20.8 % (21.0-51.0); MEAN CORPUSCULAR HEMOGLOBIN 26.3 pg (27.0-33.0); MEAN CORPUSCULAR HGB CONC 30.7 g/dL (32.0-36.0); MEAN CORPUSCULAR VOLUME 85.7 fL (79-99); MONOCYTES # (AUTO) 0.8 K/uL (0.1-1.0); MONOCYTES % (AUTO) 7.8 % (3.0-13.0); NEUTROPHILS # (AUTO) 7.1 K/uL (1.8-7.7); NEUTROPHILS % (AUTO) 70.2 % (40.0-77.0); PLATELET COUNT (AUTO) 236 K/uL (130-400); RED BLOOD CELL COUNT(AUTO) 3.15 MIL/uL (4.50-6.20); RED CELL DISTRIBUTION WIDTH 15.1 % (11.0-15.5)
[2023-03-20] MEDS: HYDROCODONE/ACETAMINOPHEN 10/325 MG TAB PO PRN ×2 (05:45→18:35)
[2023-03-20 05:55] LABS: ALBUMIN 2.2 g/dL (3.5-5.0); BILIRUBIN,TOTAL 0.4 mg/dL (0.2-1.0); POTASSIUM 3.4 mmol/L (3.5-5.1); TOTAL PROTEIN, SERUM 8.3 g/dL (6.0-8.3)
[2023-03-20] MEDS: KCL 20 MEQ ERTAB PO PRN (06:22)
[2023-03-20] MEDS: INSULIN HUMULIN R 100 UNIT/ML 3ML SQ SCH ×4 (06:25→20:56)
[2023-03-20 06:54] LABS: CREATININE 0.9 mg/dL (0.5-1.5)
[2023-03-20] MEDS: METOPROLOL SUCCINATE 50 MG TAB.SR.24H PO SCH ×2 (09:39→19:57)
[2023-03-20] MEDS: PANTOPRAZOLE 40 MG/VIAL IVP SCH (09:39)
[2023-03-20] MEDS ORDERED: HYDROMORPHONE 1 MG INJ IVP PRN (14:00)
[2023-03-20] MEDS: KETOROLAC 15MG/ML VIAL (15MG/ML) IV PRN ×2 (14:50→21:13)
[2023-03-20] MEDS: ATORVASTATIN 40 MG TABLET PO SCH (19:57)
[2023-03-20] MEDS: APIXABAN 5 MG TABLET PO SCH (19:57)
[2023-03-21] VITALS: BP 153/78; PULSE 75; RESP 18
[2023-03-21 04:00] VITALS: BP 160/64; PULSE 77; RESP 18
[2023-03-21 05:32] LABS: BASOPHILS # (AUTO) 0.04 K/uL (0.00-0.20); BASOPHILS % (AUTO) 0.5 % (0.0-5.0); EOSINOPHILS # (AUTO) 0.03 K/uL (0.00-0.70); EOSINOPHILS % (AUTO) 0.4 % (0.0-8.0); IMMATURE GRANULOCYTE ABSOLUTE 0.04 K/uL (0-1); LYMPHOCYTES # (AUTO) 1.7 K/uL (1.0-4.8); MEAN CORPUSCULAR HEMOGLOBIN 26.1 pg (27.0-33.0); MEAN CORPUSCULAR HGB CONC 31.1 g/dL (32.0-36.0); MEAN CORPUSCULAR VOLUME 83.9 fL (79-99); MONOCYTES # (AUTO) 0.7 K/uL (0.1-1.0); MONOCYTES % (AUTO) 7.9 % (3.0-13.0); NEUTROPHILS % (AUTO) 70.7 % (40.0-77.0); PLATELET COUNT (AUTO) 256 K/uL (130-400); RED BLOOD CELL COUNT(AUTO) 3.22 MIL/uL (4.50-6.20); RED CELL DISTRIBUTION WIDTH 15.1 % (11.0-15.5); WHITE BLOOD COUNT (AUTO) 8.4 K/uL (4.8-10.8)
[2023-03-21 06:04] LABS: ALBUMIN 2.1 g/dL (3.5-5.0); BILIRUBIN,TOTAL 0.4 mg/dL (0.2-1.0); CREATININE 0.8 mg/dL (0.5-1.5); POTASSIUM 3.1 mmol/L (3.5-5.1)
[2023-03-21] MEDS: INSULIN HUMULIN R 100 UNIT/ML 3ML SQ SCH ×2 (06:27→12:28)
[2023-03-21] MEDS: KCL 20 MEQ ERTAB PO PRN (06:28)
[2023-03-21] MEDS: LEVOTHYROXINE 100 MCG TABLET PO SCH (06:28)
[2023-03-21] MEDS: HYDROCODONE/ACETAMINOPHEN 10/325 MG TAB PO PRN ×2 (06:29→12:25)
[2023-03-21 08:00] VITALS: BP 155/57; PULSE 73; RESP 16
[2023-03-21] MEDS: APIXABAN 5 MG TABLET PO SCH (08:52)
[2023-03-21] MEDS: METOPROLOL SUCCINATE 50 MG TAB.SR.24H PO SCH (08:52)
[2023-03-21] MEDS: PANTOPRAZOLE 40 MG/VIAL IVP SCH (08:52)
[2023-03-21] MEDS: KETOROLAC 15MG/ML VIAL (15MG/ML) IV PRN (08:53)
[2023-03-21 09:45] VITALS: O2SAT 98
[2023-03-21 12:00] VITALS: BP 134/46; PULSE 71; RESP 18
[2023-03-21] MEDS ORDERED: METOPROLOL TARTRATE 25 MG TAB PO SCH (21:00)
== END 2023-03-21 16:30 | disposition home health service (06) | DRG 853 ==
LOC: EDH 17:45 → EDHIP 19:55 → 3BH 21:07 → UNDODISIN 03-21 16:30
PROVIDERS: ADMIT Hospitalist; ATTEND Hospitalist
PROC: 0Y6H0Z1 Detachment at Right Lower Leg, High, Open Approach (ICD-10-PCS; principal; 2023-03-18 13:55)
DX: A41.9 Sepsis, unspecified organism (principal); E43 Unspecified severe protein-calorie malnutrition; N17.0 Acute kidney failure with tubular necrosis; E11.52 Type 2 diabetes mellitus with diabetic peripheral angiopathy with gangrene; M86.8X7 Other osteomyelitis, ankle and foot; I13.0 Hypertensive heart and chronic kidney disease with heart failure and stage 1 through stage 4 chronic kidney disease, or unspecified chronic kidney disease; M00.9 Pyogenic arthritis, unspecified; T81.31XA Disruption of external operation (surgical) wound, not elsewhere classified, initial encounter; E11.621 Type 2 diabetes mellitus with foot ulcer; E03.9 Hypothyroidism, unspecified; E11.69 Type 2 diabetes mellitus with other specified complication; D64.9 Anemia, unspecified; E11.22 Type 2 diabetes mellitus with diabetic chronic kidney disease; E78.5 Hyperlipidemia, unspecified; I25.10 Atherosclerotic heart disease of native coronary artery without angina pectoris; I48.0 Paroxysmal atrial fibrillation; I50.9 Heart failure, unspecified; J44.9 Chronic obstructive pulmonary disease, unspecified; L03.031 Cellulitis of right toe; L97.519 Non-pressure chronic ulcer of other part of right foot with unspecified severity; M19.071 Primary osteoarthritis, right ankle and foot; Y83.8 Other surgical procedures as the cause of abnormal reaction of the patient, or of later complication, without mention of misadventure at the time of the procedure; N18.30 Chronic kidney disease, stage 3 unspecified; Z79.02 Long term (current) use of antithrombotics/antiplatelets; Z83.3 Family history of diabetes mellitus; Z86.73 Personal history of transient ischemic attack (TIA), and cerebral infarction without residual deficits; Z79.01 Long term (current) use of anticoagulants; Z95.1 Presence of aortocoronary bypass graft; Z95.5 Presence of coronary angioplasty implant and graft; I25.2 Old myocardial infarction; Y92.89 Other specified places as the place of occurrence of the external cause
CPT/HCPCS: 36415; 71045; 73630; 73706; 73718; 80053; 80061; 80202; 81001; 82728; 82948; 83036; 83540; 83550; 83615; 83735; 84145; 85025; 85027; 85610; 85651; 85730; 86140; 87040; 87070; 87076; 87077; 87186; 87635; 93005; 93923; 93925; 93970; 97039; C9113; G0378; J0360; J0692; J1170; J1644; J1650; J1815; J1885; J1956; J2001; J2175; J2250; J2371; J2405; J2704; J2795; J3010; J3370; J3490; Q9967; 3370; A4215; A4221; A4222; A4223; A4649; A4663; A4930; A6223; A6446; A6450

== ENCOUNTER 2024-01-04 08:17 | Emergency (ER) | payer OTHER, MEDICARE ==
[~2024-01-04] VITALS: Ht 175.3 cm; Wt 76.2 kg
[~2024-01-04 08:17] MED LIST changes: -ALBU90AE2 IH; -ATOR40TA69 PO; +ATOR40TA71 PO; -BISA-189 PO; +CILO100T3 PO; +CLOP-31 PO; +CYAN-35 PO; +CYCL10TA16 PO; +DAPA10TA PO; -DULA1.5P SQ; -INSU100V37 SQ; -LEVO150T11 PO; +LEVO25TA4 PO; +METO-408 PO; -METO25TA6 PO; -NITR0.4T50 SL; -POTA-200 PO; -PREG150C PO; +PREG75 PO; -TIOT4MIS5 IH
[2024-01-04 08:24] VITALS: BP 115/73; PULSE 85; RESP 17; O2SAT 98
[2024-01-04] MEDS: HYDROCODONE/ACETAMINOPHEN 10/325 MG TAB PO ONE (09:51)
== END 2024-01-04 11:04 | disposition home or self-care (01) ==
LOC: EDH 08:17
DX: M79.651 Pain in right thigh (principal); M79.604 Pain in right leg; E11.9 Type 2 diabetes mellitus without complications; E78.00 Pure hypercholesterolemia, unspecified; I10 Essential (primary) hypertension; Z79.01 Long term (current) use of anticoagulants; Z79.02 Long term (current) use of antithrombotics/antiplatelets; Z79.84 Long term (current) use of oral hypoglycemic drugs; Z79.890 Hormone replacement therapy; Z88.0 Allergy status to penicillin; Z89.611 Acquired absence of right leg above knee; Z95.1 Presence of aortocoronary bypass graft
CPT/HCPCS: 73552

== ENCOUNTER 2024-06-06 08:56 | Emergency (ER) | payer OTHER, MEDICARE ==
[~2024-06-06] VITALS: Ht 175.3 cm; Wt 79.8 kg
[2024-06-06 08:58] VITALS: BP 121/72; PULSE 88; RESP 16; TEMP 97.7; O2SAT 98
[2024-06-06 09:49] LABS: BASOPHILS # (AUTO) 0.05 K/uL (0.00-0.20); BASOPHILS % (AUTO) 0.9 % (0.0-5.0); EOSINOPHILS # (AUTO) 0.13 K/uL (0.00-0.70); EOSINOPHILS % (AUTO) 2.3 % (0.0-8.0); HEMATOCRIT 34.8 % (42-54); IMMATURE GRANULOCYTE ABSOLUTE 0.02 K/uL (0-1); LYMPHOCYTES # (AUTO) 2.2 K/uL (1.0-4.8); LYMPHOCYTES % (AUTO) 37.8 % (21.0-51.0); MEAN CORPUSCULAR HEMOGLOBIN 28.9 pg (27.0-33.0); MEAN CORPUSCULAR HGB CONC 32.8 g/dL (32.0-36.0); MEAN CORPUSCULAR VOLUME 88.1 fL (79-99); MONOCYTES # (AUTO) 0.5 K/uL (0.1-1.0); MONOCYTES % (AUTO) 8.5 % (3.0-13.0); NEUTROPHILS # (AUTO) 2.9 K/uL (1.8-7.7); NEUTROPHILS % (AUTO) 50.2 % (40.0-77.0); PLATELET COUNT (AUTO) 182 K/uL (130-400); RED BLOOD CELL COUNT(AUTO) 3.95 MIL/uL (4.50-6.20); WHITE BLOOD COUNT (AUTO) 5.8 K/uL (4.8-10.8)
[2024-06-06] MEDS: ORPHENADRINE 60MG/2ML IM ONE (10:08)
[2024-06-06 10:34] LABS: CREATININE 1.3 mg/dL (0.5-1.3); POTASSIUM 3.9 mmol/L (3.5-5.1)
[2024-06-06 10:40] LABS: MAGNESIUM 1.8 mg/dL (1.80-2.40)
[2024-06-06] MEDS: diazePAM 2 MG TAB PO ONE (11:42)
== END 2024-06-06 12:01 | disposition home or self-care (01) ==
LOC: EDH 08:56
DX: M79.604 Pain in right leg (principal); E11.9 Type 2 diabetes mellitus without complications; E78.00 Pure hypercholesterolemia, unspecified; I10 Essential (primary) hypertension; Z79.01 Long term (current) use of anticoagulants; Z79.02 Long term (current) use of antithrombotics/antiplatelets; Z79.84 Long term (current) use of oral hypoglycemic drugs; Z79.890 Hormone replacement therapy; Z88.0 Allergy status to penicillin; Z95.1 Presence of aortocoronary bypass graft
CPT/HCPCS: 36415; 80048; 82550; 83735; 85025; 96372; J2360

== ENCOUNTER → 2024-12-29 | Outpatient (CLI) | payer OTHER, MEDICAID ==
[~2024-12-29] MED LIST changes: +ALPR0.255 PO; -CYCL10TA16 PO; +FAMO20TA8 PO; +FERS325 PO; +HYDR-4381 PO; -ICOS1CAP PO
[2024-12-29] MEDS: REGADENOSON 0.4 MG/5 ML PF SYG IVP ONE (12:29)
--- NOTE | 2024-12-30 07:25 | HMCSR ---
APPROVED REPORT Height: 5 ft 9in Weight: 160 lbs TEST INDICATIONS CAD The imaging protocol used to acquire images was Rest Tc-99m/stress Tc-99m 1 day Consent: The procedure was explained and understood by the patient. Informerd consent was witnessed Seamus Lara RN First, low dose rest was performed then high dose stress. RESTING DATA: The resting ekg shows: NSR Rest SPECT myocardial perfusion imaging was performed in supine position 70 minutes following the int ravenous injection of 12 mCi of Tc-99 Sestamibi. Time of rest injection: 08:12: Date: 12/29/2024 Time of rest imagin:22: Date: 12/29/2024 PHARMACOLOGIC STRESS: Pharmacologic stress test was performed by injecting regadenoson 0.4 mg IV push followed by the intra venous injection of 32.8 mCi of Tc-99 Sestamibi. Time of stress injection: 09:50: Date: 12/29/2024 Time of stress imagin:03: Date: 12/29/2024 Heart Rate at time of stress injection: 72 bpm. Gated Stress SPECT was performed 73 minutes after stress injection. The images were gated to evaluate regional wall motion and calculate left ventricular ejection fracti on. STRESS DETAILS Reason for Termination: Infusion complete Stress Symptoms: Dyspnea, Stomach Cramps Max HR Achieved: 86 bpm % of APMHR Achieved: 60 Max Blood Pressure: 141/60 mmHg Stress ECG: NSR LEFT VENTRICLE Size: The left ventricular size is mildly dilated. Systolic Function:The left ventricular systolic function is mildly decreased. Wall Motion: Infero-apical hypokinesis. The left ventricular ejection fraction was calculated to be 51%.TID = . LV PERFUSION Fixed inferior wall defect. No reversible defects noted. Conclusion The left ventricular size is mildly dilated. The left ventricular systolic function is mildly decreased. Infero-apical hypokinesis. Fixed inferior wall defect. No reversible defects noted. The left ventricular ejection fraction was calculated to be 51%.
== END | disposition home or self-care (01) ==
LOC: SHCH 07:44
PROVIDERS: ATTEND Internal Medicine Cardiovascular Disease
DX: I51.7 Cardiomegaly (principal); I25.10 Atherosclerotic heart disease of native coronary artery without angina pectoris; R06.00 Dyspnea, unspecified; R10.9 Unspecified abdominal pain
CPT/HCPCS: 78452; 93017; J2785; A9500 ×2

== ENCOUNTER 2025-04-08 15:40 | Emergency (ER) | payer OTHER ==
[~2025-04-08] VITALS: Ht 175.3 cm; Wt 81.6 kg
[2025-04-08 16:32] LABS: IMMATURE GRANULOCYTE ABSOLUTE 0.05 K/uL (0-1); NUCLEATED RED BLOOD CELLS 0.0 % (0.0-0.19); PLATELET COUNT (AUTO) 183 K/uL (130-400); RED BLOOD CELL COUNT(AUTO) 5.15 MIL/uL (4.50-6.20); RED CELL DISTRIBUTION WIDTH 13.6 % (11.0-15.5); WHITE BLOOD COUNT (AUTO) 10.5 K/uL (4.8-10.8)
[2025-04-08 16:40] LABS: CREATININE 1.0 mg/dL (0.5-1.3); GLOMERULAR FILTR. RATE CALC 78.0 mL/min (>90); GLUCOSE,RANDOM 147.0 mg/dL (70-105); SODIUM SERUM 137.0 mmol/L (136-145); UREA NITROGEN, BLOOD 16.0 mg/dL (7-18)
[2025-04-08] MEDS: LACTATED RINGERS 1000ML 1,000 ML IV ONE ×2 (16:47→17:46)
[2025-04-08 16:48] LABS: CREATINE KINASE, TOTAL 78.0 U/L (21-232)
--- NOTE | 2025-04-08 17:03 | NUR ---
pt reports nausea and vomiting since last night. currently presents with emesis bag that has undigested food particles. emesis bag was discarded and new bag was provided.
--- NOTE | 2025-04-08 17:23 | HMCIMG ---
EXAM: CR Chest, 1 View. CLINICAL HISTORY: chest paoin COMPARISON: None provided. Radiograph dated December 09, 2024 FINDINGS: LUNGS: There is no mass, infiltrate, or acute pulmonary abnormality. PLEURAL SPACES: No evidence of pleural effusion or pneumothorax. MEDIASTINUM: Prior sternotomy. The cardiomediastinal silhouette is within normal limits. BONES: No aggressive appearing osseous lesion seen. IMPRESSION: No acute cardiopulmonary pathology is evident. /[place]
[2025-04-08] MEDS: ASPIRIN 325MG TAB PO ONE (17:47)
[2025-04-08 18:07] LABS: APPEARANCE,URINE CLEAR (CLEAR); GLUCOSE, URINE (UA) >=1000 mg/dL (NEGATIVE); LEUKOCYTE ESTERASE ,URINE NEGATIVE Leu/uL (NEGATIVE); NITRATE,URINE NEGATIVE (NEGATIVE); OCCULT BLOOD,URINE SMALL (NEGATIVE)
--- NOTE | 2025-04-08 18:07 | NUR ---
PT REFUSED ASPIRIN 325MG ONCE. ER PHYSICIAN MADE AWARE
[2025-04-08 18:15] LABS: ADD UA MICROSCOPIC YES
[2025-04-08 18:20] LABS: SQUAMOUS EPITHELIAL CELL,UR FEW /HPF (0-2)
[2025-04-08] MEDS ORDERED: ONDA-243 PO (18:57)
--- NOTE | 2025-04-08 18:58 | ERN ---
General Chief Complaint: Weakness Stated Complaint: WEAKNESS Time Seen by MD: 15:57 History of Present Illness Initial Comments 74-year-old male, diabetes hypertension, right BKA, presents for generalized weakness and vomiting. Patient reports 48 hours of decreased oral intake, persistent vomiting. He also had a few episodes of watery diarrhea yesterday. He reports that he feels like he is not able to hold anything down he feels dizzy. He reports some dizziness and lightheadedness while standing. He denies any abdominal pain. Denies any fevers. Denies any cough congestion or other complaints. Allergies: Coded Allergies: Penicillins (Verified Allergy, Severe, HIVES, 04/07/12) duloxetine (Verified Allergy, Severe, Delusional, 04/29/23) ampicillin (Verified Allergy, Unknown, 04/29/23) ketorolac (Unverified Allergy, Unknown, 06/02/23) family requesting not to give to patient. caused confusion and hallucinations to the patient. pregabalin (Unverified Adverse Reaction, Severe, HALLUCINATIONS, 06/06/23) Uncoded Allergies: ORANGES (Allergy, Severe, HIVES, 04/07/12) Home Meds Active Scripts Ondansetron (Ondansetron Odt) 4 Mg Tab.rapdis, 1 TAB PO Q6HPRN PRN for nausea/vomiting for 3 Days, #10 TAB 0 Refills Prov:ELIANEJILLIAN Romina MOSLEY 04/08/25 Reported Medications Ferrous Sulfate (Ferrous Sulfate) 325 Mg (65 Mg Iron) Ectab, 1 TAB PO DAILY for 30 Days, #30 TAB 0 Refills 12/08/24 Cilostazol (Cilostazol) 100 Mg Tablet, 1 TAB PO BID for 30 Days, #60 TAB 0 Refills 12/08/24 Famotidine (Famotidine) 20 Mg Tablet, 1 TAB PO BID for 30 Days, #60 TAB 0 Refills 12/08/24 Hydrocodone/Acetaminophen (Hydrocodone-Acetamin 10-300 mg) 10 Mg-300 Mg Tablet, 1 TAB PO Q6HPRN for 30 Days, #120 TAB 0 Refills 12/07/24 Alprazolam (Alprazolam) 0.25 Mg Tablet, 1 TAB PO AD PRN for anxiety for 30 Days, #30 TAB 0 Refills 12/07/24 Cyanocobalamin (Vitamin B-12) (Vitamin B-12) 1,000 Mcg Capsule, 1000 MCG PO DAILY, CAP 06/02/23 Levothyroxine Sodium (Synthroid) 25 Mcg Tablet, 25 MCG PO DAILY, TAB 06/02/23 Pregabalin (Lyrica) 75 Mg Cap, 75 MG PO BID, CAP 06/02/23 Pioglitazone HCl (Pioglitazone HCl) 45 Mg Tablet, 45 MG PO DAILY, TAB 06/02/23 Metoprolol Succinate (Metoprolol Succinate) 25 Mg Tab.er.24h, 25 MG PO BID, TAB 06/02/23 Metformin HCl (Metformin HCl) 1,000 Mg Tablet, 1000 MG PO BID, TAB 06/02/23 Losartan Potassium (Losartan Potassium) 100 Mg Tablet, 100 MG PO HS, TAB 06/02/23 Dapagliflozin Propanediol (Farxiga) 10 Mg Tablet, 10 MG PO DAILY, TAB 06/02/23 Apixaban (Eliquis) 5 Mg Tablet, 5 MG PO BID, TAB 06/02/23 Clopidogrel Bisulfate (Plavix) 75 Mg Tablet, 75 MG PO DAILY, TAB 06/02/23 Atorvastatin Calcium (Atorvastatin Calcium) 40 Mg Tablet, 40 MG PO HS, TAB 06/02/23 Past Medical History Past Medical History: CAD, Diabetes-Type II, High Cholesterol, Heart Disease, Hypertension, SD, Stroke Medical History Other: HX OF STENTS; CABG; Past Surgical History: CABG Surgical History Other: CARDIAC STENTS Social History Social History: Negative, Lives with family Results Laboratory and Microbiology Lab and Micro Result Laboratory Tests Test 04/08/25 16:26 04/08/25 17:43 04/08/25 17:57 White Blood Count 10.5 K/uL (4.8-10.8) Red Blood Count 5.15 MIL/uL (4.50-6.20) Hemoglobin 14.9 g/dL (14.0-18.0) Hematocrit 45.5 % (42-54) Mean Corpuscular Volume 88.3 fL (79-99) Mean Corpuscular Hemoglobin 28.9 pg (27.0-33.0) Mean Corpuscular Hemoglobin Concent 32.7 g/dL (32.0-36.0) Red Cell Distribution Width 13.6 % (11.0-15.5) Platelet Count 183 K/uL (130-400) Mean Platelet Volume 8.5 fL (7.5-10.5) Immature Granulocyte % (Auto) 0.5 % (0-1) Neutrophils (%) (Auto) 62.7 % (40.0-77.0) Lymphocytes (%) (Auto) 31.4 % (21.0-51.0) Monocytes (%) (Auto) 4.7 % (3.0-13.0) Eosinophils (%) (Auto) 0.2 % (0.0-8.0) Basophils (%) (Auto) 0.5 % (0.0-5.0) Neutrophils # (Auto) 6.6 K/uL (1.8-7.7) Lymphocytes # (Auto) 3.3 K/uL (1.0-4.8) Monocytes # (Auto) 0.5 K/uL (0.1-1.0) Eosinophils # (Auto) 0.02 K/uL (0.00-0.70) Basophils # (Auto) 0.05 K/uL (0.00-0.20) Absolute Immature Granulocyte (auto 0.05 K/uL (0-1) Nucleated Red Blood Cells 0.0 % (0.0-0.19) Sodium Level 137 mmol/L (136-145) Potassium Level 4.2 mmol/L (3.5-5.1) Chloride Level 103 mmol/L (101-111) Carbon Dioxide Level 27 mmol/L (21-32) Blood Urea Nitrogen 16 mg/dL (7-18) Creatinine 1.0 mg/dL (0.5-1.3) Glomerular Filtration Rate Calc 78 mL/min (>90) Random Glucose 147 mg/dL (70-105) H Total Calcium 8.8 mg/dL (8.5-10.1) Magnesium Level 2.00 mg/dL (1.80-2.40) Total Creatine Kinase 78 U/L (21-232) # Troponin I High Sensitivity 292 ng/L (4-75) *H 245 ng/L (4-75) *H Urine Color LIGHT-YELLOW (YELLOW) Urine Appearance CLEAR (CLEAR) Urine pH 6.0 (5.0-8.0) Urine Specific [place] 1.035 (1.001-1.031) Urine Protein 100 mg/dL (NEGATIVE) H Urine Glucose (UA) >=1000 mg/dL (NEGATIVE) H Urine Ketones 5 mg/dL (NEGATIVE) H Urine Occult Blood SMALL (NEGATIVE) H Urine Nitrate NEGATIVE (NEGATIVE) Urine Bilirubin NEGATIVE mg/dL (NEGATIVE) Urine Urobilinogen 0.2 mg/dL (0.2-1.0) Urine Leukocyte Esterase NEGATIVE Bird/uL Urine RBC 11-25 /HPF (0-1) H Urine WBC None /HPF (0-1) Urine Squamous Epithelial Cells FEW /HPF (0-2) Urine Bacteria None /HPF (None Seen) MDM Differential diagnosis: Gastroenteritis, indigestion, medication effect, enterocolitis, diverticulitis Rationale: Tests considered and ordered secondary to shared decision making include: Previous outside records reviewed: Old ER visits. Risk of complication and/or morbidity or mortality of patient management: None Medications-Per medication reconciliation Need for hospitalization: Patient does not meet criteria for hospitalization. Need for emergency major/minor surgery: No There are no social concerns with this patient. Prescription drug management Prescriptions will include symptomatic care Patient's prior external medical records from other ER visits were reviewed by me as indicated. Prior testing and results from previous visits were reviewed. Prior tests were taken into account with medical decision making and resource utilization, independent historian/historians were used to obtain complete medical history. I independently interpreted the test that were performed, results were reviewed by me and considered findings on radiology if ordered. Medical management and examination interpretation discussions were had by me with other qualified healthcare professionals as indicated for the patient's care. I did consider admission. Due to the dehydration, offered patient admission for observation and rehydration. Patient reports after the fluids that he feels much better. He is p.o. challenged in the ER and was able to hold down liquids without vomiting. Workup is baseline for patient. No signs of significant disease or life-threatening pathology. Since patient has stable vital signs stable labs p.o. tolerant and prefers to go home we will discharge. ED Course Orders Procedure Category Date Status Time Cardiac Panel LAB 04/08/25 Complete 16:15 Cbc With Differential LAB 04/08/25 Complete 16:15 Basic Metabolic Panel LAB 04/08/25 Complete 16:15 Magnesium LAB 04/08/25 Complete 16:15 Urinalysis Profile LAB 04/08/25 Complete 16:15 Lactated Ringers PHA 04/08/25 Complete 1000ml (Lactated 16:30 Chest 1vw RAD 04/08/25 Resulted 16:15 12 Lead Ekg Tracing- EKG 04/08/25 Complete Technical 16:15 Troponin I High LAB 04/08/25 Complete Sensitivity 17:00 Aspirin 325mg Tab PHA 04/08/25 Complete (Aspirin 325mg Tab) 17:00 Ondansetron 4mg Inj PHA 04/08/25 Complete (Zofran 4mg Inj) 18:00 Lactated Ringers PHA 04/08/25 Complete 1000ml (Lactated 18:00 Ondansetron Odt 4mg PHA 04/08/25 Complete Tab (Zofran 4mg Odt) 20:00 Current Medications Medications (Trade) Dose Ordered Sig/Enzo Route PRN Reason Start Time Stop Time Status Last Admin Dose Admin Aspirin (Aspirin 325mg Tab) 325 mg ONCE ONCE PO 04/08/25 17:00 04/08/25 17:05 DC Lactated Ringer's 1,000 ml @ 0 mls/hr ONCE ONCE IV 04/08/25 16:30 04/08/25 16:31 DC 04/08/25 16:47 Lactated Ringer's 1,000 ml @ 0 mls/hr ONCE ONCE IV 04/08/25 18:00 04/08/25 18:01 DC 04/08/25 17:46 Ondansetron HCl (zoFRAN 4MG INJ) 4 mg ONCE ONCE IVP 04/08/25 18:00 04/08/25 18:01 DC 04/08/25 17:47 Ondansetron HCl (zoFRAN 4MG ODT) 4 mg ONCE ONCE SL 04/08/25 20:00 04/08/25 20:01 DC 04/08/25 20:15 Vital Signs Date Time Temp Pulse Resp B/P (MAP) Pulse Ox O2 Delivery O2 Flow Rate FiO2 04/08/25 20:23 97.9 62 18 155/79 96 Room Air* 0 04/08/25 19:32 97.7 66 18 172/76 94 Room Air* 0 04/08/25 19:10 99.0 60 18 174/77 96 Room Air* 0 04/08/25 17:58 99.0 60 18 175/80 97 Room Air* 0 04/08/25 16:57 61 18 158/83 98 Room Air* 0 04/08/25 15:42 99.0 62 20 163/95 97 Room Air 0 7:00 p.m. patient was signed out to me by a.m. physician This is a 74-year-old male with multiple medical problems presented to the emerg ency room with his spouse with complaints of generalized weakness nausea vomitings and diarrhea going on for the past 3 days. No history of any fever chills or rigors. No hematemesis or melena. No other family members have been sick. 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 Urinalysis is positive for glucose protein and some RBCs but no evidence of any infection. Troponins 1st set to 92 seconds at 2:42 a.m. chest x-ray is unremarkable for any focal infiltrate. Patient has received gentle fluids and antiemetics. 8:00 p.m. patient admits to feeling significantly improved and he is tolerating p.o. liquids. He reports being hungry now and wants to eat solids. I updated the patient and spouse on all the lab tests results and slightly elevated troponins and in review of previous labs he has had a slightly elevated troponin all the time. They both stated that Dr. Elliott/Dr. Salcedo or the district service manager group and he saw them a month ago. He is totally asymptomatic at this time without any chest pain diaphoresis shortness of breath. I updated them that there is no leukocytosis and this may simply be a mild viral gastroenteritis and I would discharge him home with some antiemetics but encouraged him to increase p.o. fluids. If any recurrence of symptoms instructed to return to the emergency room. DX & DISP Disposition: Discharge Departure Impression: Primary Impression: Viral gastroenteritis Additional Impressions: Dehydration, Elevated troponin Condition: Stable Scripts Ondansetron (Ondansetron Odt) 4 Mg Tab.rapdis 1 TAB PO Q6HPRN PRN for nausea/vomiting for 3 Days, #10 TAB 0 Refills Prov: JILLIAN DEL RIO DO 8/22/25 Additional Instructions: Your symptoms are consistent with a viral gastroenteritis, and mild dehydration. Gastroenteritis is a viral syndrome often caused by bad food or infection. This will often clear on its own. Your vital signs has been stable here in the ER. Your blood work is unremarkable. You do have a mildly elevated troponin level, which appears to be baseline for you. If you have any chest pains or cardiac symptoms please return to the emergency department. Your chest x-ray and your EKG are unremarkable. You received IV fluids and IV Zofran here in the ER. I have prescribed ondansetron dissolvable tabs. You can take one tab up to 3 times a day as needed to prevent vomiting. Be sure to drink plenty of liquids. An electrolyte solution such as Gatorade or Pedialyte has a good choice. Start with the BRAT (bananas, rice, applesauce, toast) diet. Advance her diet slowly as tolerated after that. If you have any concerning symptoms or inability to eat, please immediately return to the emergency department for re-evaluation. Otherwise, I recommend that you follow up with your primary doctor next week. Referrals: ALLY STODDARD MD (PCP) JILLIAN DEL RIO DO Apr 08, 2025 18:58 RENETTA ROYAL MD Apr 08, 2025 20:04
--- NOTE | 2025-04-08 19:18 | EKG ---
[facility] Test Date: 2025-04-08 Test Time: 16:51:11 Pat Name: SARATH JERNIGAN Department: ED Room: Gender: M [employer] Product Manager: [id number] : 1950 Requested By: JILLIAN DEL RIO Order Number: [id number] Reading MD: Raymond Arechiga Measurements Intervals [place] Rate: 63 P: 42 MT: 171 QRS: 40 QRSD: 117 T: -65 QT: 439 QTc: 451 Interpretive Statements Sinus rhythm Nonspecific intraventricular conduction delay Inferior infarct, age indeterminate Compared to ECG 12/07/2024 10:06:46 Poor R-wave progression no longer present Myocardial infarct finding still present Electronically Signed On 04-09-2025 12:06:57 CDT by Raymond Arechiga Please click the below link to view image of tracing.
[2025-04-08 20:23] VITALS: BP 155/79; PULSE 62; RESP 18; TEMP 97.9; O2SAT 96
== END 2025-04-08 20:26 | disposition home or self-care (01) ==
LOC: EDH 15:40
DX: A08.4 Viral intestinal infection, unspecified (principal); E86.0 Dehydration; R79.89 Other specified abnormal findings of blood chemistry; I25.10 Atherosclerotic heart disease of native coronary artery without angina pectoris; E11.9 Type 2 diabetes mellitus without complications; E78.00 Pure hypercholesterolemia, unspecified; I11.9 Hypertensive heart disease without heart failure; I25.2 Old myocardial infarction; Z79.01 Long term (current) use of anticoagulants; Z79.02 Long term (current) use of antithrombotics/antiplatelets; Z79.84 Long term (current) use of oral hypoglycemic drugs; Z79.890 Hormone replacement therapy; Z79.899 Other long term (current) drug therapy; Z86.73 Personal history of transient ischemic attack (TIA), and cerebral infarction without residual deficits; Z88.0 Allergy status to penicillin; Z89.511 Acquired absence of right leg below knee; Z95.1 Presence of aortocoronary bypass graft; Z95.5 Presence of coronary angioplasty implant and graft
CPT/HCPCS: 99285; 96374; 71045; 82550; 83735; 84484 ×2; 80048; 85025; 81001; 36415; 93005; J7120 ×2; J2405

== ENCOUNTER 2025-06-10 18:15 | Emergency (ER) | payer OTHER ==
[~2025-06-10] VITALS: Ht 175.3 cm; Wt 80.7 kg
[~2025-06-10 18:15] MED LIST changes: +ONDA-243 PO
--- NOTE | 2025-06-10 18:26 | ERN ---
ED Note History of Present Illness Stated Complaint: NUMBNESS TO LT ARM AND RT LEG Chief Complaint: Numbness Time Seen by MD: 18:18 Dictation: PATIENT IS A 75-YEAR-OLD MALE COMING IN TODAY WITH COMPLAINTS OF LEFT UPPER EXTREMITY NUMBNESS AND RIGHT XHLOE-BUH-SOJJ AMPUTATION NUMBNESS. HE STATES THE ONSET WAS 2 HOURS PRIOR TO ARRIVAL. HE STATES HE HAD GOTTEN INTO AN ARGUMENT WITH HIS ABOUT THEIR DAUGHTER COMING OVER AND STEALING SOME MONEY. HE SAID HE WAS UPSET. HE STATES HE HAS HAD A PRIOR CVA WITH A CHRONIC LEFT HEMIPARESIS. 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 TONGUE MIDLINE NO STROKE ALERT CRITERIA AT THIS TIME Allergies: Coded Allergies: Penicillins (Verified Allergy, Severe, HIVES, 04/07/12) duloxetine (Verified Allergy, Severe, Delusional, 04/29/23) ampicillin (Verified Allergy, Unknown, 04/29/23) ketorolac (Unverified Allergy, Unknown, 06/02/23) family requesting not to give to patient. caused confusion and hallucinations to the patient. pregabalin (Unverified Adverse Reaction, Severe, HALLUCINATIONS, 06/06/23) Uncoded Allergies: ORANGES (Allergy, Severe, HIVES, 04/07/12) Home Meds Active Scripts Calcium Carbonate (Calcium) 600 Mg Calcium (1500 Mg) Tablet, 1 TAB PO BID for 5 Days, #10 TAB 0 Refills Prov:GREGORIO ANDRADE TECHNOLOGY SERVICES MANAGER 06/10/25 Ondansetron (Ondansetron Odt) 4 Mg Tab.rapdis, 1 TAB PO Q6HPRN PRN for nausea/vomiting for 3 Days, #10 TAB 0 Refills Prov:JILLIAN DEL RIO DO 04/08/25 Reported Medications Ferrous Sulfate (Ferrous Sulfate) 325 Mg (65 Mg Iron) Ectab, 1 TAB PO DAILY for 30 Days, #30 TAB 0 Refills 12/08/24 Cilostazol (Cilostazol) 100 Mg Tablet, 1 TAB PO BID for 30 Days, #60 TAB 0 Refills 12/08/24 Famotidine (Famotidine) 20 Mg Tablet, 1 TAB PO BID for 30 Days, #60 TAB 0 Refills 12/08/24 Hydrocodone/Acetaminophen (Hydrocodone-Acetamin 10-300 mg) 10 Mg-300 Mg Tablet, 1 TAB PO Q6HPRN for 30 Days, #120 TAB 0 Refills 12/07/24 Alprazolam (Alprazolam) 0.25 Mg Tablet, 1 TAB PO AD PRN for anxiety for 30 Days, #30 TAB 0 Refills 12/07/24 Cyanocobalamin (Vitamin B-12) (Vitamin B-12) 1,000 Mcg Capsule, 1000 MCG PO DAILY, CAP 06/02/23 Levothyroxine Sodium (Synthroid) 25 Mcg Tablet, 25 MCG PO DAILY, TAB 06/02/23 Pregabalin (Lyrica) 75 Mg Cap, 75 MG PO BID, CAP 06/02/23 Pioglitazone HCl (Pioglitazone HCl) 45 Mg Tablet, 45 MG PO DAILY, TAB 06/02/23 Metoprolol Succinate (Metoprolol Succinate) 25 Mg Tab.er.24h, 25 MG PO BID, TAB 06/02/23 Metformin HCl (Metformin HCl) 1,000 Mg Tablet, 1000 MG PO BID, TAB 06/02/23 Losartan Potassium (Losartan Potassium) 100 Mg Tablet, 100 MG PO HS, TAB 06/02/23 Dapagliflozin Propanediol (Farxiga) 10 Mg Tablet, 10 MG PO DAILY, TAB 06/02/23 Apixaban (Eliquis) 5 Mg Tablet, 5 MG PO BID, TAB 06/02/23 Clopidogrel Bisulfate (Plavix) 75 Mg Tablet, 75 MG PO DAILY, TAB 06/02/23 Atorvastatin Calcium (Atorvastatin Calcium) 40 Mg Tablet, 40 MG PO HS, TAB 06/02/23 Past Medical History Past Medical History: CAD, Diabetes-Type II, High Cholesterol, Heart Disease, Hypertension, MT, Stroke Additional Past Medical Hx: HX OF STENTS; CABG; Surgical History: CABG Surgical History Other: CARDIAC STENTS Social History: Negative, Lives with family RN Note Reviewed/Agreed w/PFSH: Yes Review of System Dictation CONSTITUTIONAL: NEGATIVE EXCEPT FOR HPI HEAD/FACE: NEGATIVE EXCEPT FOR HPI EENT: NEGATIVE EXCEPT FOR HPI RESPIRATORY: NEGATIVE EXCEPT FOR HPI GASTROINTESTINAL/ABDOMINAL: NEGATIVE EXCEPT FOR HPI GENITOURINARY: NEGATIVE EXCEPT FOR HPI MUSCULOSKELETAL: NEGATIVE EXCEPT FOR HPI INTEGUMENTARY: NEGATIVE EXCEPT FOR HPI NEUROLOGICAL/PSYCH: NEGATIVE EXCEPT FOR HPI LEFT ARM/RIGHT STUMP NUMBNESS HEMATOLOGIC/LYMPHATIC: NEGATIVE EXCEPT FOR HPI ALL SYSTEMS NEGATIVE, EXCEPT NOTED ABOVE. 13 POINT REVIEW OF SYSTEMS ASSESSED AND ALL NEGATIVE EXCEPT FOR ABOVE. Initial Vital Sign VS Vital Signs Date Time Temp Pulse Resp B/P (MAP) Pulse Ox O2 Delivery O2 Flow Rate FiO2 06/10/25 18:16 98.2 71 20 158/71 99 Room Air Physical Exam Dictation VITAL SIGNS REVIEWED GENERAL APPEARANCE: ALERT, ORIENTED X 3, NO ACUTE DISTRESS, WELL DEVELOPED, NOURISHED. NO PAIN. HEAD AND FACE: NON-TRAUMATIC. EYES: PERRL, PINK CONJUNCTIVAS, EYELID NO TRAUMA, ANTERIOR CHAMBER WITH ARCUS SENILIS. EARS: PINNAS INTACT AND NO SIGNS OF TRAUMA OR ERYTHEMA EAR CANALS CLEAR AND NO DISCHARGE TM NO ERYTHEMA NOSE: NO DISCHARGE, NO BLEEDING. OROPHARYNX: MOUTH NORMAL, TONGUE PINK, PHARYNX CLEAR,NO ERYTHEMA, TONSILS NO EXUDATES, NO ABSCESSES NOTED, MUCOUS MEMBRANE MOIST NECK: SUPPLE, NON-TENDER, NO THYROMEGALY, NO MASSES, NO JVD, NO BRUITS BREAST:DEFERRED CHEST:NO TENDERNESS, NO CREPITUS, NO PARADOXICAL MOVEMENT, NO RETRACTIONS LUNGS:CLEAR, WELL-VENTILATED, SYMMETRIC, NO RALES, NO WHEEZING, NO RHONCHI, NO STRIDOR, GOOD BREATH SOUNDS BILATERALLY HEART: REGULAR RATE, REGULAR RHYTHM, NO MURMUR, NO GALLOPS VASCULAR: NO PERIPHERAL EDEMA, ABDOMEN: SOFT, POSITIVE BOWEL SOUNDS, NONDISTENDED, NO GUARDING, NONTENDER, NO REBOUND, NO MASSES NO HEPATOMEGALY, NO SPLENOMEGALY, NO MURILLO'S SIGN, NO HERNIAS. RECTAL: DEFERRED GENITAL: DEFERRED NEUROLOGICAL: NORMAL SPEECH, MOTOR FUNCTION INTACT, SENSORY FUNCTION INTACT PATIENT HAS A MILD DRIFT LEFT UPPER EXTREMITY HE SAID THIS IS CHRONIC. CRANIAL NERVES 2-12 GROSSLY INTACT SENSATION INTACT BILATERALLY. MUSCULOSKELETAL: NECK NONTENDER, FULL RANGE OF MOTION, BACK NONTENDER, FULL RANGE OF MOTION, EXTREMITIES: NONTENDER, FULL RANGE OF MOTION RIGHT AKA. SKIN: COLOR PINK, DRY, NO TURGOR, NO RASH, NO LACERATIONS, NO ABRASIONS, NO CONTUSIONS. LYMPHATIC: DEFERRED Results (Laboratory/Radiology) Laboratory/Radiology Laboratory Tests Test 06/10/25 19:04 White Blood Count 8.0 K/uL (4.8-10.8) Red Blood Count 4.94 MIL/uL (4.50-6.20) Hemoglobin 14.4 g/dL (14.0-18.0) Hematocrit 43.6 % (42-54) Mean Corpuscular Volume 88.3 fL (79-99) Mean Corpuscular Hemoglobin 29.1 pg (27.0-33.0) Mean Corpuscular Hemoglobin Concent 33.0 g/dL (32.0-36.0) Red Cell Distribution Width 14.1 % (11.0-15.5) Platelet Count 204 K/uL (130-400) Mean Platelet Volume 8.5 fL (7.5-10.5) Immature Granulocyte % (Auto) 0.3 % (0-1) Neutrophils (%) (Auto) 55.2 % (40.0-77.0) Lymphocytes (%) (Auto) 33.6 % (21.0-51.0) Monocytes (%) (Auto) 7.9 % (3.0-13.0) Eosinophils (%) (Auto) 2.0 % (0.0-8.0) Basophils (%) (Auto) 1.0 % (0.0-5.0) Neutrophils # (Auto) 4.4 K/uL (1.8-7.7) Lymphocytes # (Auto) 2.7 K/uL (1.0-4.8) Monocytes # (Auto) 0.6 K/uL (0.1-1.0) Eosinophils # (Auto) 0.16 K/uL (0.00-0.70) Basophils # (Auto) 0.08 K/uL (0.00-0.20) Absolute Immature Granulocyte (auto 0.02 K/uL (0-1) Nucleated Red Blood Cells 0.0 % (0.0-0.19) Sodium Level 142 mmol/L (136-145) Potassium Level 4.1 mmol/L (3.5-5.1) Chloride Level 105 mmol/L (101-111) Carbon Dioxide Level 27 mmol/L (21-32) Blood Urea Nitrogen 21 mg/dL (7-18) H Creatinine 1.3 mg/dL (0.5-1.3) Glomerular Filtration Rate Calc 57 mL/min (>90) Random Glucose 165 mg/dL (70-105) H Total Calcium 8.4 mg/dL (8.5-10.1) L Troponin I High Sensitivity 298 ng/L (4-75) *H ASON: RIGHT LEG AND LEFT UPPER EXTREMITY NUMBNESS. HISTORY OF PRIOR CVA ORDERING PHYSICIAN: GREGORIO ANDRADE PROCEDURE: HEAD WO - CT HEAD/BRAIN W/O CONTRAST EXAM: CT Head Without IV contrast. CLINICAL HISTORY: RIGHT LEG AND LEFT UPPER EXTREMITY NUMBNESS. HISTORY OF PRIOR CVA TECHNIQUE: Axial computed tomography images of the head/brain without intravenous contrast. COMPARISON: None provided. FINDINGS: BRAIN: No acute bleed or infarct. Chronic ischemic and atrophic changes. VENTRICLES: No hydrocephalus. ORBITS: The orbits are unremarkable. SINUSES AND MASTOIDS: The paranasal sinuses and mastoid air cells are clear. BONES: No fracture. SOFT TISSUES: Unremarkable. IMPRESSION: No acute bleed or infarct. Chronic ischemic and atrophic changes. /[place] Labs Reviewed?: Yes EKG Comment: 1828/EKG SINUS RHYTHM/HEART RATE 72/CHRONIC CHANGES TO LEADS TWO THREE V1 THROUGH V THREE ACUTE CHANGE ED Course ED Course Orders Procedure Category Date Status Time Ct Head/Brain W/O CT 06/10/25 Resulted Contrast 18:21 Cbc With Differential LAB 06/10/25 Complete 18:21 Troponin I High LAB 06/10/25 Complete Sensitivity 18:21 12 Lead Ekg Tracing- EKG 06/10/25 Complete Technical 18:21 Basic Metabolic Panel LAB 06/10/25 Complete 18:21 Vital Signs Date Time Temp Pulse Resp B/P (MAP) Pulse Ox O2 Delivery O2 Flow Rate FiO2 06/10/25 18:16 98.2 71 20 158/71 99 Room Air 2000/PATIENT REMAINS NEUROLOGICALLY INTACT. SHE HAS A TROPONIN OF 298 WITH A BASELINE EKG FOR HIM WITH NO CHANGES. REVIEW OF PATIENT'S HISTORY AT [facility] DEMONSTRATES HE HAS HAD ELEVATED TROPONINS GREATER THAN 250 IN THE PAST. HE HAS NO COMPLAINTS OF CHEST PAIN BACK PAIN OR SOB. WE WILL BE DISCHARGED HOME TO FOLLOW UP WITH HIS PRIMARY CARE DOCTOR WITH A DIAGNOSIS OF ACUTE ANXIETY REACTION. HEART Score Response (Comments) Value EKG: Repolarization changes 1 Age: > 65yrs (+2) 2 Risk Factors: 3+ risk factors (+2) 2 Initial Troponin: Normal limit (0) 0 Total 5 Medical Decision Making MDM MDM: DIFFERENTIAL DIAGNOSIS: CVA/ANXIETY/ELECTROLYTE IMBALANCE/DEHYDRATION/ACS/AMI RATIONALE: TESTS CONSIDERED AND ORDERED SECONDARY TO SHARED DECISION MAKING INCLUDE: CT/LABS/EKG PREVIOUS OUTSIDE RECORDS REVIEWED: OLD ER VISITS. RISK OF COMPLICATION AND/OR MORBIDITY OR MORTALITY OF PATIENT MANAGEMENT: NONE MEDICATIONS-PER MEDICATION RECONCILIATION NEED FOR HOSPITALIZATION: PATIENT DOES NOT MEET CRITERIA FOR HOSPITALIZATION. NO NEED FOR EMERGENCY MAJOR/MINOR SURGERY: NO THERE ARE NO SOCIAL CONCERNS WITH THIS PATIENT. PRESCRIPTION DRUG MANAGEMENT PATIENT INSTRUCTED TO FOLLOW UP WITH HIS PRIMARY CARE DOCTOR IN 1-2 DAYS. PRESCRIPTIONS WILL INCLUDE SYMPTOMATIC CARE PATIENT'S PRIOR EXTERNAL MEDICAL RECORDS FROM OTHER ER VISITS WERE REVIEWED BY ME INDICATED. PRIOR TESTING AND RESULTS FROM PREVIOUS VISITS WERE REVIEWED. PRIOR TESTS WERE TAKEN INTO ACCOUNT WITH MEDICAL DECISION MAKING AND RESOURCE UTILIZATION, INDEPENDENT HISTORIAN/HISTORIANS WERE USED TO OBTAIN COMPLETE MEDICAL HISTORY. I INDEPENDENTLY INTERPRETED THE TEST THAT WERE PERFORMED, RESULTS WERE REVIEWED BY ME AND CONSIDERED FINDINGS ON RADIOLOGY IF ORDERED. MEDICAL MANAGEMENT AND EXAMINATION INTERPRETATION DISCUSSIONS WERE HAD BY ME WITH OTHER QUALIFIED HEALTHCARE PROFESSIONALS INDICATED FOR THE PATIENT'S CARE. DX & DISP Disposition: Discharge Departure Impression: Primary Impression: Anxiety in acute stress reaction Additional Impressions: Elevated troponin level not due to acute coronary syndrome, Diabetes mellitus with hyperglycemia, Hypocalcemia Condition: Stable Scripts Calcium Carbonate (Calcium) 600 Mg Calcium (1500 Mg) Tablet 1 TAB PO BID for 5 Days, #10 TAB 0 Refills Prov: GREGORIO ANDRADE [facility] 06/10/25 Additional Instructions: FOLLOW-UP WITH PRIMARY CARE PROVIDER IN 1 TO 2 DAYS. TAKE MEDICATIONS DIRECTED HERE IN THE EMERGENCY ROOM. OKAY TO CONTINUE HOME MEDICATIONS UNLESS OTHERWISE DISCUSSED DURING YOUR VISIT IN THE EMERGENCY ROOM TODAY. RETURN TO YOUR NEAREST EMERGENCY ROOM IF SYMPTOMS WORSEN OR IF THERE IS NO IMPROVEMENT. CALL 911 IF YOU NEED IMMEDIATE ASSISTANCE. TAKE TYLENOL OR MOTRIN ONBS-PCP-AEVEQIP NEEDED AND IF NO CONTRAINDICATIONS ARE PRESENT. INCREASE ORAL HYDRATION. A WOUND CULTURE OR URINE CULTURE WAS ORDERED HERE IN THE EMERGENCY ROOM DEPARTMENT PLEASE FOLLOW-UP WITH PRIMARY CARE PROVIDER AND ADVISE THEM TO GET REPEAT PORTS FROM OUR FACILITY. IF YOU HAD ANY BENTON WRAP/SPLINTS THAT WERE APPLIED HERE, PLEASE DO NOT REMOVE THEM UNTIL YOU SEE YOUR PRIMARY CARE OR SPECIALTY. TAKE CALCIUM DIRECTED UNTIL GONE. SEE YOUR PRIMARY CARE DOCTOR FOR FOLLOW UP IN 1-2 DAYS. RETURN TO THE EMERGENCY ROOM IF ANY NEW CONCERNS. Referrals: ALYL STODDARD MD (PCP) Time of Disposition: 20:03 I have reviewed the case, and I agree with, Diagnosis and Plan GREGORIO ANDRADE TECHNOLOGY SERVICES MANAGER Jun 10, 2025 18:26
--- NOTE | 2025-06-10 18:33 | EKG ---
[facility] Test Date: 2025-06-10 Test Time: 18:28:27 Pat Name: SARATH JERNIGAN Department: ED Room: Gender: M Manager Information: [birth year] : 1950 Requested By: GREGORIO ANDRADE Order Number: [id number] Reading MD: Bria Lindo Measurements Intervals [place] Rate: 72 P: -42 AR: 188 QRS: -36 QRSD: 105 T: 32 QT: 407 QTc: 444 Interpretive Statements Sinus rhythm Inferior infarct, old Anterior infarct, old Compared to ECG 04/08/2025 16:51:11 Intraventricular conduction delay no longer present Myocardial infarct finding still present Electronically Signed On 06-11-2025 12:42:27 CDT by Bria Lindo Please click the below link to view image of tracing.
--- NOTE | 2025-06-10 18:48 | HMCIMG ---
EXAM: CT Head Without IV contrast. CLINICAL HISTORY: RIGHT LEG AND LEFT UPPER EXTREMITY NUMBNESS. HISTORY OF PRIOR CVA TECHNIQUE: Axial computed tomography images of the head/brain without intravenous contrast. COMPARISON: None provided. FINDINGS: BRAIN: No acute bleed or infarct. Chronic ischemic and atrophic changes. VENTRICLES: No hydrocephalus. ORBITS: The orbits are unremarkable. SINUSES AND MASTOIDS: The paranasal sinuses and mastoid air cells are clear. BONES: No fracture. SOFT TISSUES: Unremarkable. IMPRESSION: No acute bleed or infarct. Chronic ischemic and atrophic changes. /[place]
[2025-06-10 19:10] LABS: IMMATURE GRANULOCYTE ABSOLUTE 0.02 K/uL (0-1); NUCLEATED RED BLOOD CELLS 0.0 % (0.0-0.19); PLATELET COUNT (AUTO) 204 K/uL (130-400); RED BLOOD CELL COUNT(AUTO) 4.94 MIL/uL (4.50-6.20); RED CELL DISTRIBUTION WIDTH 14.1 % (11.0-15.5); WHITE BLOOD COUNT (AUTO) 8.0 K/uL (4.8-10.8)
[2025-06-10 19:18] LABS: CREATININE 1.3 mg/dL (0.5-1.3); GLOMERULAR FILTR. RATE CALC 57.0 mL/min (>90); GLUCOSE,RANDOM 165.0 mg/dL (70-105); SODIUM SERUM 142.0 mmol/L (136-145); UREA NITROGEN, BLOOD 21.0 mg/dL (7-18)
[2025-06-10] MEDS ORDERED: CALC-1125 PO (20:04)
[2025-06-10 21:01] VITALS: BP 125/70; PULSE 65; RESP 17; TEMP 98.6; O2SAT 96
== END 2025-06-10 21:01 | disposition home or self-care (01) ==
LOC: EDH 18:15
DX: F41.1 Generalized anxiety disorder (principal); F43.0 Acute stress reaction; E11.65 Type 2 diabetes mellitus with hyperglycemia; E83.51 Hypocalcemia; R79.89 Other specified abnormal findings of blood chemistry; I25.10 Atherosclerotic heart disease of native coronary artery without angina pectoris; E78.00 Pure hypercholesterolemia, unspecified; I11.9 Hypertensive heart disease without heart failure; I25.2 Old myocardial infarction; Z86.73 Personal history of transient ischemic attack (TIA), and cerebral infarction without residual deficits; Z95.1 Presence of aortocoronary bypass graft; Z95.5 Presence of coronary angioplasty implant and graft; Z88.0 Allergy status to penicillin; Z88.8 Allergy status to other drugs, medicaments and biological substances; Z88.1 Allergy status to other antibiotic agents; Z88.6 Allergy status to analgesic agent; Z79.01 Long term (current) use of anticoagulants; Z79.02 Long term (current) use of antithrombotics/antiplatelets; Z79.84 Long term (current) use of oral hypoglycemic drugs; Z79.890 Hormone replacement therapy; Z79.899 Other long term (current) drug therapy
CPT/HCPCS: 36415; 70450; 80048; 84484; 85025; 93005; 99284